=== PATIENT | male | born 1950 | race Caucasian/White ===

== ENCOUNTER → 2017-11-30 10:16 | Outpatient (CLI) | payer MEDICARE, OTHER, SELFPAY ==
[2017-11-30 12:04] LABS: Add Manual Diff / Slide Review NO; Basophils Percent Auto 0.5 % (0-2); Eosinophils Percent Auto 1.5 % (2-4); Hematocrit 42.9 % (41-53); Hemoglobin 14.1 g/dL (13.5-17.5); Mean Corpuscular Hemoglobin 28.6 PG (26-34); Mean Corpuscular Volume 86.7 fL (80-100); Monocytes Percent Auto 7.3 % (3-14); Neutrophils Absolute Auto 4000 /uL (3000-5900); Neutrophils Percent Auto 63.7 % (50-75); Platelet Count 319 X10^3/uL (150-400); Red Blood Cell Count 4.95 X10^6/uL (4.5-5.9); Red Cell Distribution Width 14.2 % (11.6-14.8); White Blood Cell Count 6.3 X10^3/uL (4.5-11.0)
[2017-11-30 12:08] LABS: Albumin 3.7 g/dL (3.5-5.0); BUN Creatinine Ratio 21.1 (6-22); Blood Urea Nitrogen 19 mg/dL (9-20); Carbon Dioxide 31 mmol/L (22-32); Chloride 103 mmol/L (98-107); Estimated Glomerular Filt Rate > 60.0 mL/min (>60); Glucose 85 mg/dL (80-110); HEMOLYSIS < 15 (0-50); Potassium 3.7 mmol/L (3.4-5.1); Sodium 141 mmol/L (137-145)
[2017-11-30 12:39] LABS: Carcinoembryonic Antigen 1.4 ng/mL (0.1-3.0)
== END ==
PROVIDERS: Family Provider Physician Assistant; PCP Physician Assistant
DX: D12.2 Benign neoplasm of ascending colon (principal)
CPT/HCPCS: 36415; 80048; 82040; 82378; 85025

== ENCOUNTER 2018-03-23 21:34 | Emergency (ER) | payer MEDICARE, OTHER, SELFPAY ==
[2018-03-23 21:42] VITALS: BP 148/80; PULSE 91; RESP 20; TEMP 37.8; O2SAT 95; BMI 32.8
--- NOTE | 2018-03-23 23:27 | ED.FEVER ---
HPI - Fever General Chief Complaint: Fever Stated Complaint: fever Time Seen by Provider: 03/23/18 22:19 Source: patient and family Mode of arrival: ambulatory Limitations: no limitations History of Present Illness HPI Narrative: 67-year-old male, nonsmoker with history of prostate cancer presents with fever and shaking chills since yesterday. On March 18 patient had a biopsy his prostate at the [facility] and reported that this went quite well, though he does not have resulted. Yesterday the patient started developing low-grade fever which climbed to a maximal 101.8 F. He had some chills yesterday but none over the course of the day. Otherwise he is largely asymptomatic and denies any runny nose, sore throat, cough or shortness of breath. He denies any abdominal pain nor nausea or vomiting. He has no dysuria, frequency or urgency. He denies any lower extremity pain, swelling or redness. MD complaint: fever Onset (ago): day(s) Maximum Temperature: 101.8 F Temperature Source: oral Associated symptoms: chills Relieving factors: nothing Exacerbating factors: nothing Treatments prior to arrival fever: acetaminophen and ibuprofen Related Data Home Medications Medication Instructions Recorded Confirmed Ciprofloxacin Hydrochloride (Cipro) #0 12/20/09 METRONIDAZOLE (Flagyl) #0 12/20/09 [FISH OIL] Q DAY #0 12/20/09 [GLUCOSAMINE/CHOND] PO Q DAY #0 12/20/09 Previous Rx's Medication Instructions Recorded levofloxacin [Levaquin] 500 mg PO DAILY #7 tab 03/24/18 Allergies Allergy/AdvReac Type Severity Reaction Status Date / Time No Known Drug Allergies Allergy Verified 03/23/18 23:43 Review of Systems Review of Systems All systems reviewed & are unremarkable except as noted in HPI and below Constitutional Reports chills, Reports fever(s), Denies lethargy and Denies weakness Eyes Denies change in vision, Denies eye discharge, Denies irritation and Denies loss of vision ENT Ears, Nose, Mouth, and Throat: Denies change in voice, Denies neck pain and Denies sore throat Cardiovascular Denies chest pain, Denies irregular heart rhythm, Denies lightheadedness, Denies palpitations, Denies dyspnea, Denies dyspnea on exertion and Denies orthopnea Respiratory Denies cough, Denies dyspnea, Denies dyspnea on exertion and Denies wheezing Gastrointestinal Gastrointestinal: Denies abdominal pain, Denies change in bowel habits, Denies diarrhea, Denies nausea and Denies vomiting Genitourinary Denies hematuria, Denies flank pain, Denies urinary incontinence and Denies urinary urgency Musculoskeletal Denies neck pain Integumentary/Breasts Denies pruritus, Denies erythema, Denies rash and Denies wounds Neurologic Denies confusion, Denies loss of vision and Denies weakness Psychiatric Denies anxiety, Denies confusion, Denies depression, Denies homicidal ideation and Denies suicidal ideation Endocrine Denies palpitations Hematologic/Lymphatic Denies easy bruising Allergic/Immunologic Denies wheezing [facility] Medical History Prostate CA (Acute) Surgical History History of total left knee replacement (Acute) Social History Smoking Status: Never smoker Exam Narrative Exam Narrative: GENERAL: 67-year-old male resting comfortably, in no obvious distress HEAD: Atraumatic. Normocephalic. No temporal or scalp tenderness. EYES: Pupils equal round and reactive. Extraocular motions intact. No scleral icterus. No injection or drainage. ENT: Nose without bleeding, purulent drainage or septal hematoma. Throat without erythema, tonsillar hypertrophy or exudate. Uvula midline. Airway patent. NECK: Trachea midline. No JVD or lymphadenopathy. Supple, nontender, no meningeal signs. CARDIOVASCULAR: Regular rate and rhythm without murmurs, gallops, or rubs. RESPIRATORY: Clear to auscultation. Breath sounds equal bilaterally. No wheezes, rales, or rhonchi. GASTROINTESTINAL: Abdomen soft, non-tender, nondistended. No hepato-splenomegaly, or palpable masses. No guarding. EXTREMITIES: No clubbing, cyanosis, or edema. No joint tenderness, effusion, or edema noted. BACK: Nontender without deformity or crepitance. No flank tenderness. NEURO: AOx3. SKIN: No rash or erythema. Initial Vital Signs Initial Vital Signs: Vital Signs Temperature 100.0 F H 03/23/18 21:42 Pulse Rate 91 H 03/23/18 21:42 Respiratory Rate 20 10/28/18 21:42 Blood Pressure 148/80 H 03/23/18 21:42 Pulse Oximetry 95 03/23/18 21:42 Course Orders Ordered: ED Orders 03/23/18 23:15 Urine Microscopic Stat 03/23/18 23:25 Basic Metabolic Panel Stat Complete Blood Count AUTO DIFF Stat Lactate (Lactic Acid) Stat Procalcitonin Stat 03/23/18 23:38 XR chest 1V Stat 03/23/18 23:55 Blood Culture Stat Discontinued Medications Levofloxacin (Levaquin) 500 mg in 100 mls @ 100 mls/hr IV NOW ONE Stop: 03/24/18 00:36 Last Infusion: 03/24/18 01:14 Dose: 0 mls/hr Admin: 03/24/18 00:15 Dose: 100 mls/hr Sodium Chloride (Normal Saline 0.9%) 1,000 mls @ 1,000 mls/hr IV BOLUS ONE Stop: 03/24/18 00:36 Last Infusion: 03/24/18 00:37 Dose: 0 mls/hr Admin: 03/23/18 23:48 Dose: 1,000 mls/hr Ketorolac Tromethamine (Toradol) 15 mg IV NOW ONE Stop: 03/23/18 23:38 Last Admin: 03/23/18 23:46 Dose: 15 mg Reevaluation(s) Reevaluation #1: Patient continues to be asymptomatic and rest comfortably in the department Consultations Consultation #1: Call to Urology at the [facility] to discuss this case. Labs and physical exam are very reassuring as is the set of vital signs. We sure the opinion fluoroquinolone and close follow-up are more appropriate than admission until cleared cultures. The patient and his were on board with this and plan to follow up very closely with her providers. Vital Signs - 8 hr 03/23/18 21:42 03/23/18 23:46 03/24/18 00:00 Temperature 100.0 F H 100.0 F H 100.1 F H Pulse Rate 91 H 88 Respiratory Rate 20 16 Blood Pressure 148/80 H Blood Pressure [Right Arm] 123/70 Pulse Oximetry 95 96 03/24/18 00:30 03/24/18 00:37 03/24/18 01:36 Temperature 101.1 F H Pulse Rate 85 79 Respiratory Rate 14 16 Blood Pressure Blood Pressure [Right Arm] 121/65 115/64 Pulse Oximetry 97 98 MDM - Fever Lab Data Result diagrams: 03/23/18 23:25 03/23/18 23:25 Lab Results 03/23/18 03/23/18 03/23/18 Range/Units 23:15 23:25 23:25 WBC 6.8 (4.5-11.0) X10^3/uL RBC 5.04 (4.5-5.9) X10^6/uL Hgb 14.0 (13.5-17.5) g/dL Hct 42.2 (41-53) % MCV 83.7 (80-100) fL MCH 27.7 (26-34) PG MCHC 33.1 (30-36) % RDW 15.1 H (11.6-14.8) % Plt Count 239 (150-400) X10^3/uL Neut % (Auto) 70.7 (50-75) % Lymph % (Auto) 14.4 L (25-40) % [place] % (Auto) 8.2 (3-14) % Eos % (Auto) 6.0 H (2-4) % Baso % (Auto) 0.7 (0-2) % Neut # (Auto) 4800 (4665-0992) /uL Sodium 136 L (137-145) mmol/L Potassium 3.7 (3.4-5.1) mmol/L Chloride 101 (98-107) mmol/L Carbon Dioxide 26 (22-32) mmol/L BUN 18 (9-20) mg/dL Creatinine 0.90 (0.66-1.25) mg/dL Estimated GFR > 60.0 (>60) mL/min BUN/Creatinine Ratio 20.0 (6-22) Glucose 105 (80-110) mg/dL Lactate (0.7-2.1) mmol/L Calcium 8.5 (8.4-10.2) mg/dL Procalcitonin (<0.5) ng/mL Urine RBC 1-5/hpf (0-5/HPF) Urine WBC 0-1/hpf (0-5/HPF) Urine Bacteria Occasional (0-1) (None) Urine Mucus 3+ H (Negative) Ur Culture Indicated? Cult not indicated Micro UA Comment Not Reportable 10/28/18 10/28/18 Range/Units 23:25 23:25 WBC (4.5-11.0) X10^3/uL RBC (4.5-5.9) X10^6/uL Hgb (13.5-17.5) g/dL Hct (41-53) % MCV (80-100) fL MCH (26-34) PG MCHC (30-36) % RDW (11.6-14.8) % Plt Count (150-400) X10^3/uL Neut % (Auto) (50-75) % Lymph % (Auto) (25-40) % [place] % (Auto) (3-14) % Eos % (Auto) (2-4) % Baso % (Auto) (0-2) % Neut # (Auto) (8041-0749) /uL Sodium (137-145) mmol/L Potassium (3.4-5.1) mmol/L Chloride (98-107) mmol/L Carbon Dioxide (22-32) mmol/L BUN (9-20) mg/dL Creatinine (0.66-1.25) mg/dL Estimated GFR (>60) mL/min BUN/Creatinine Ratio (6-22) Glucose (80-110) mg/dL Lactate 0.7 (0.7-2.1) mmol/L Calcium (8.4-10.2) mg/dL Procalcitonin 0.08 (<0.5) ng/mL Urine RBC (0-5/HPF) Urine WBC (0-5/HPF) Urine Bacteria (None) Urine Mucus (Negative) Ur Culture Indicated? Micro UA Comment Urine Dip Bedside Urine Glucose Negative Bedside Urine Bilirubin - Negative Bedside Urine Ketone - Negative Urine Specific [place] 1.030 Bedside Urine Occult Blood ++ Bedside Urine pH 6.0 Bedside Urine Protein - Negative Bedside Urine Urobilinogen - Negative Bedside Urine Nitrite - Negative Bedside Urine Leukocytes - Negative Esterase Discharge Plan Departure Patient Disposition: Home Clinical Impression: Fever of unknown origin Discharge Date/Time: 03/24/18 02:00 Interventions: ED Discharge Assessment Last Done: 03/24/18 01:45 Instructions: DI for Fever (Symptom) -- Adult Activity Restrictions/Additional Instructions: *You have been diagnosed with [ fever and possible bacteremia ] *What to do: *Take medications as directed: Your prescription has been electronically transmitted to the [facility] [place] in [place] at your request *Follow up with your primary care provider in 2-3 days, call for an appointment. Let them know you were seen in the Emergency Department and that we ask that you be seen in follow up *Return to ER if you should have any new, worsening or concerning symptoms * You have been prescribed Levaquin as an antibiotic. A possible side effect is problems with tendons. Should you develop pain in any of your joints discontinue the antibiotic and follow up with your provider immediately. Prescriptions: New levofloxacin [Levaquin] 500 mg tablet 500 mg PO DAILY Qty: 7 RF: 0 No Action Ciprofloxacin Hydrochloride (Cipro) Qty: 0 RF: 0 METRONIDAZOLE (Flagyl) Qty: 0 RF: 0 [FISH OIL] Q DAY Qty: 0 RF: 0 [GLUCOSAMINE/CHOND] PO Q DAY Qty: 0 RF: 0 Referrals: Honey Shahid PA-C [Primary Care Provider] -
--- NOTE | 2018-03-23 23:38 | DI.RAD.S_ITS ---
PROCEDURE: XR CHEST 1V INDICATIONS: septic eval TECHNIQUE: One view of the chest was acquired. COMPARISON: [facility], , CHEST 1 VIEW, 12/25/2009, 14:59. FINDINGS: Surgical changes and devices: None. Lungs and pleura: No pleural effusions or pneumothorax. Lungs are clear. Mediastinum: Mediastinal contours appear normal. Heart size is normal. Bones and chest wall: No suspicious bony lesions. Overlying soft tissues appear unremarkable. IMPRESSION: Reduced inspiratory volume, no pneumonia seen. Source of sepsis syndrome is not identified. Dictated by: Jose Roberto Choi M.D. on 03/24/2018 at 8:16 Approved by: Jose Roberto Choi M.D. on 03/24/2018 at 8:16
[2018-03-23 23:46] VITALS: TEMP 37.8
[2018-03-23 23:46] LABS: Add Manual Diff / Slide Review NO; Basophils Percent Auto 0.7 % (0-2); Hematocrit 42.2 % (41-53); Lymphocytes Percent Auto 14.4 % (25-40); Mean Corpuscular HGB Conc 33.1 % (30-36); Mean Corpuscular Hemoglobin 27.7 PG (26-34); Mean Corpuscular Volume 83.7 fL (80-100); Monocytes Percent Auto 8.2 % (3-14); Neutrophils Absolute Auto 4800 /uL (3000-5900); Neutrophils Percent Auto 70.7 % (50-75); Platelet Count 239 X10^3/uL (150-400); Red Blood Cell Count 5.04 X10^6/uL (4.5-5.9); Red Cell Distribution Width 15.1 % (11.6-14.8); White Blood Cell Count 6.8 X10^3/uL (4.5-11.0)
[2018-03-23] MEDS: KETOROLAC 60 MG/2 ML VIAL 15 MG IV (23:46)
[2018-03-23] MEDS: SODIUM CHLORIDE 0.9% 1,000 ML 1000 ML IV (23:48)
[2018-03-23 23:50] LABS: Lactate (Lactic Acid) 0.7 mmol/L (0.7-2.1)
[2018-03-23 23:56] LABS: Blood Urea Nitrogen 18 mg/dL (9-20); Calcium 8.5 mg/dL (8.4-10.2); Carbon Dioxide 26 mmol/L (22-32); Chloride 101 mmol/L (98-107); Estimated Glomerular Filt Rate > 60.0 mL/min (>60); Glucose 105 mg/dL (80-110); HEMOLYSIS < 15 (0-50); Potassium 3.7 mmol/L (3.4-5.1); Sodium 136 mmol/L (137-145)
[2018-03-24] VITALS: BP 123/70; PULSE 88; RESP 16; TEMP 37.8; O2SAT 96
[2018-03-24 00:02] LABS: Bacteria Urine Occasional (0-1); Culture Indicated Urine Cult Not Indicated; Mucus Urine 3+ (Negative); RBC Urine 1-5/HPF (0-5/HPF); WBC Urine 0-1/HPF (0-5/HPF)
[2018-03-24 00:10] LABS: Procalcitonin 0.08 ng/mL (<0.5)
[2018-03-24] MEDS: levoFLOXacin 500 MG/100 ML PIGGYBACK 100 MG IV (00:15)
[2018-03-24 00:30] VITALS: BP 121/65; PULSE 85; RESP 14; O2SAT 97
[2018-03-24 00:37] VITALS: TEMP 38.4
[2018-03-24 01:36] VITALS: BP 115/64; PULSE 79; RESP 16; O2SAT 98
--- NOTE | 2018-03-24 04:47 | ED_ITS ---
HPI - Fever General Chief Complaint: Fever Stated Complaint: fever Time Seen by Provider: 03/23/18 22:19 Source: patient and family Mode of arrival: ambulatory Limitations: no limitations History of Present Illness HPI Narrative: 67-year-old male, nonsmoker with history of prostate cancer presents with fever and shaking chills since yesterday. On March 18 patient had a biopsy his prostate at the [facility] and reported that this went quite well, though he does not have resulted. Yesterday the patient started developing low-grade fever which climbed to a maximal 101.8 F. He had some chills yesterday but none over the course of the day. Otherwise he is largely asymptomatic and denies any runny nose, sore throat, cough or shortness of breath. He denies any abdominal pain nor nausea or vomiting. He has no dysuria, frequency or urgency. He denies any lower extremity pain, swelling or redness. MD complaint: fever Onset (ago): day(s) Maximum Temperature: 101.8 F Temperature Source: oral Associated symptoms: chills Relieving factors: nothing Exacerbating factors: nothing Treatments prior to arrival fever: acetaminophen and ibuprofen Related Data Home Medications Medication Instructions Recorded Confirmed Ciprofloxacin Hydrochloride (Cipro) #0 12/20/09 METRONIDAZOLE (Flagyl) #0 12/20/09 [FISH OIL] Q DAY #0 12/20/09 [GLUCOSAMINE/CHOND] PO Q DAY #0 12/20/09 Previous Rx's Medication Instructions Recorded levofloxacin [Levaquin] 500 mg PO DAILY #7 tab 03/24/18 Allergies Allergy/AdvReac Type Severity Reaction Status Date / Time No Known Drug Allergies Allergy Verified 03/23/18 23:43 Review of Systems Review of Systems All systems reviewed & are unremarkable except as noted in HPI and below Constitutional Reports chills, Reports fever(s), Denies lethargy and Denies weakness Eyes Denies change in vision, Denies eye discharge, Denies irritation and Denies loss of vision ENT Ears, Nose, Mouth, and Throat: Denies change in voice, Denies neck pain and Denies sore throat Cardiovascular Denies chest pain, Denies irregular heart rhythm, Denies lightheadedness, Denies palpitations, Denies dyspnea, Denies dyspnea on exertion and Denies orthopnea Respiratory Denies cough, Denies dyspnea, Denies dyspnea on exertion and Denies wheezing Gastrointestinal Gastrointestinal: Denies abdominal pain, Denies change in bowel habits, Denies diarrhea, Denies nausea and Denies vomiting Genitourinary Denies hematuria, Denies flank pain, Denies urinary incontinence and Denies urinary urgency Musculoskeletal Denies neck pain Integumentary/Breasts Denies pruritus, Denies erythema, Denies rash and Denies wounds Neurologic Denies confusion, Denies loss of vision and Denies weakness Psychiatric Denies anxiety, Denies confusion, Denies depression, Denies homicidal ideation and Denies suicidal ideation Endocrine Denies palpitations Hematologic/Lymphatic Denies easy bruising Allergic/Immunologic Denies wheezing [facility] Medical History Prostate CA (Acute) Surgical History History of total left knee replacement (Acute) Social History Smoking Status: Never smoker Exam Narrative Exam Narrative: GENERAL: 67-year-old male resting comfortably, in no obvious distress HEAD: Atraumatic. Normocephalic. No temporal or scalp tenderness. EYES: Pupils equal round and reactive. Extraocular motions intact. No scleral icterus. No injection or drainage. ENT: Nose without bleeding, purulent drainage or septal hematoma. Throat without erythema, tonsillar hypertrophy or exudate. Uvula midline. Airway patent. NECK: Trachea midline. No JVD or lymphadenopathy. Supple, nontender, no meningeal signs. CARDIOVASCULAR: Regular rate and rhythm without murmurs, gallops, or rubs. RESPIRATORY: Clear to auscultation. Breath sounds equal bilaterally. No wheezes , rales, or rhonchi. GASTROINTESTINAL: Abdomen soft, non-tender, nondistended. No hepato-splenomegaly , or palpable masses. No guarding. EXTREMITIES: No clubbing, cyanosis, or edema. No joint tenderness, effusion, or edema noted. BACK: Nontender without deformity or crepitance. No flank tenderness. NEURO: AOx3. SKIN: No rash or erythema. Initial Vital Signs Initial Vital Signs: Vital Signs Temperature 100.0 F H 03/23/18 21:42 Pulse Rate 91 H 03/23/18 21:42 Respiratory Rate 20 10/28/18 21:42 Blood Pressure 148/80 H 03/23/18 21:42 Pulse Oximetry 95 03/23/18 21:42 Course Orders Ordered: ED Orders 03/23/18 23:15 Urine Microscopic Stat 03/23/18 23:25 Basic Metabolic Panel Stat Complete Blood Count AUTO DIFF Stat Lactate (Lactic Acid) Stat Procalcitonin Stat 03/23/18 23:38 XR chest 1V Stat 03/23/18 23:55 Blood Culture Stat Discontinued Medications Levofloxacin (Levaquin) 500 mg in 100 mls @ 100 mls/hr IV NOW ONE Stop: 03/24/18 00:36 Last Infusion: 03/24/18 01:14 Dose: 0 mls/hr Admin: 03/24/18 00:15 Dose: 100 mls/hr Sodium Chloride (Normal Saline 0.9%) 1,000 mls @ 1,000 mls/hr IV BOLUS ONE Stop: 03/24/18 00:36 Last Infusion: 03/24/18 00:37 Dose: 0 mls/hr Admin: 03/23/18 23:48 Dose: 1,000 mls/hr Ketorolac Tromethamine (Toradol) 15 mg IV NOW ONE Stop: 03/23/18 23:38 Last Admin: 03/23/18 23:46 Dose: 15 mg Reevaluation(s) Reevaluation #1: Patient continues to be asymptomatic and rest comfortably in the department Consultations Consultation #1: Call to Urology at the [facility] to discuss this case. Labs and physical exam are very reassuring as is the set of vital signs. We sure the opinion fluoroquinolone and close follow-up are more appropriate than admission until cleared cultures. The patient and his were on board with this and plan to follow up very closely with her providers. Vital Signs - 8 hr 03/23/18 21:42 03/23/18 23:46 03/24/18 00:00 Temperature 100.0 F H 100.0 F H 100.1 F H Pulse Rate 91 H 88 Respiratory Rate 20 16 Blood Pressure 148/80 H Blood Pressure [Right Arm] 123/70 Pulse Oximetry 95 96 03/24/18 00:30 03/24/18 00:37 03/24/18 01:36 Temperature 101.1 F H Pulse Rate 85 79 Respiratory Rate 14 16 Blood Pressure Blood Pressure [Right Arm] 121/65 115/64 Pulse Oximetry 97 98 MDM - Fever Lab Data Result diagrams: 03/23/18 23:25 03/23/18 23:25 Lab Results 03/23/18 03/23/18 03/23/18 Range/Units 23:15 23:25 23:25 WBC 6.8 (4.5-11.0) X10^3/uL RBC 5.04 (4.5-5.9) X10^6/uL Hgb 14.0 (13.5-17.5) g/dL Hct 42.2 (41-53) % MCV 83.7 (80-100) fL MCH 27.7 (26-34) PG MCHC 33.1 (30-36) % RDW 15.1 H (11.6-14.8) % Plt Count 239 (150-400) X10^3/uL Neut % (Auto) 70.7 (50-75) % Lymph % (Auto) 14.4 L (25-40) % [place] % (Auto) 8.2 (3-14) % Eos % (Auto) 6.0 H (2-4) % Baso % (Auto) 0.7 (0-2) % Neut # (Auto) 4800 (9035-6055) /uL Sodium 136 L (137-145) mmol/L Potassium 3.7 (3.4-5.1) mmol/L Chloride 101 (98-107) mmol/L Carbon Dioxide 26 (22-32) mmol/L BUN 18 (9-20) mg/dL Creatinine 0.90 (0.66-1.25) mg/dL Estimated GFR > 60.0 (>60) mL/min BUN/Creatinine Ratio 20.0 (6-22) Glucose 105 (80-110) mg/dL Lactate (0.7-2.1) mmol/L Calcium 8.5 (8.4-10.2) mg/dL Procalcitonin (<0.5) ng/mL Urine RBC 1-5/hpf (0-5/HPF) Urine WBC 0-1/hpf (0-5/HPF) Urine Bacteria Occasional (0-1) (None) Urine Mucus 3+ H (Negative) Ur Culture Indicated? Cult not indicated Micro UA Comment Not Reportable 10/28/18 10/28/18 Range/Units 23:25 23:25 WBC (4.5-11.0) X10^3/uL RBC (4.5-5.9) X10^6/uL Hgb (13.5-17.5) g/dL Hct (41-53) % MCV (80-100) fL MCH (26-34) PG MCHC (30-36) % RDW (11.6-14.8) % Plt Count (150-400) X10^3/uL Neut % (Auto) (50-75) % Lymph % (Auto) (25-40) % [place] % (Auto) (3-14) % Eos % (Auto) (2-4) % Baso % (Auto) (0-2) % Neut # (Auto) (7682-8881) /uL Sodium (137-145) mmol/L Potassium (3.4-5.1) mmol/L Chloride (98-107) mmol/L Carbon Dioxide (22-32) mmol/L BUN (9-20) mg/dL Creatinine (0.66-1.25) mg/dL Estimated GFR (>60) mL/min BUN/Creatinine Ratio (6-22) Glucose (80-110) mg/dL Lactate 0.7 (0.7-2.1) mmol/L Calcium (8.4-10.2) mg/dL Procalcitonin 0.08 (<0.5) ng/mL Urine RBC (0-5/HPF) Urine WBC (0-5/HPF) Urine Bacteria (None) Urine Mucus (Negative) Ur Culture Indicated? Micro UA Comment Urine Dip Bedside Urine Glucose Negative Bedside Urine Bilirubin - Negative Bedside Urine Ketone - Negative Urine Specific [place] 1.030 Bedside Urine Occult Blood ++ Bedside Urine pH 6.0 Bedside Urine Protein - Negative Bedside Urine Urobilinogen - Negative Bedside Urine Nitrite - Negative Bedside Urine Leukocytes - Negative Esterase Discharge Plan Departure Patient Disposition: Home Clinical Impression: Fever of unknown origin Discharge Date/Time: 03/24/18 02:00 Interventions: ED Discharge Assessment Last Done: 03/24/18 01:45 Instructions: DI for Fever (Symptom) -- Adult Activity Restrictions/Additional Instructions: *You have been diagnosed with [ fever and possible bacteremia ] *What to do: *Take medications as directed: Your prescription has been electronically transmitted to the [facility] in [place] at your request *Follow up with your primary care provider in 2-3 days, call for an appointment. Let them know you were seen in the Emergency Department and that we ask that you be seen in follow up *Return to ER if you should have any new, worsening or concerning symptoms * You have been prescribed Levaquin as an antibiotic. A possible side effect is problems with tendons. Should you develop pain in any of your joints discontinue the antibiotic and follow up with your provider immediately. Prescriptions: New levofloxacin [Levaquin] 500 mg tablet 500 mg PO DAILY Qty: 7 RF: 0 No Action Ciprofloxacin Hydrochloride (Cipro) Qty: 0 RF: 0 METRONIDAZOLE (Flagyl) Qty: 0 RF: 0 [FISH OIL] Q DAY Qty: 0 RF: 0 [GLUCOSAMINE/CHOND] PO Q DAY Qty: 0 RF: 0 Referrals: Honey Shahid PA-C [Primary Care Provider] -
== END 2018-03-24 02:00 | disposition home or self-care (01) ==
PROVIDERS: Emergency Provider Emergency Medicine; Family Provider Physician Assistant; PCP Physician Assistant
DX: R50.9 Fever, unspecified (principal)
CPT/HCPCS: 36591; 71045; 80048; 81003; 81015; 83605; 84145; 85025; 87040; 96361; 96365; 96375; 99283; 99284; J1885; J1956

== ENCOUNTER 2018-03-25 10:35 | Emergency (ER) | payer MEDICARE, OTHER, SELFPAY ==
[2018-03-25 10:40] VITALS: BP 113/68; PULSE 96; RESP 14; TEMP 37.8; O2SAT 97; BMI 32.8
--- NOTE | 2018-03-25 11:53 | PC.NURSE ---
Patient had biopsy of prostate on five days later began having chills, fever and malaise. Patient seen here on Saturday and started on abx. Patient reports small rash noticed saturday and increase in rash lower legs bilaterally, arms, and trunk.
[2018-03-25 12:15] LABS: Influenza A and B by PCR Rapid Negative (Negative)
--- NOTE | 2018-03-25 12:38 | ED.FEVER ---
HPI - Fever <ARNOL AllisonBC - Last Filed: 03/25/18 23:06> General Chief Complaint: Fever Stated Complaint: rash, fever, feels flu like Time Seen by Provider: 03/25/18 12:30 Source: patient and family Mode of arrival: ambulatory History of Present Illness HPI Narrative: Patient is a 67-year-old male who presents approximately 1 week after prostate biopsy done at [facility]. He was seen at this facility 2 days ago for fever after his biopsy and was placed on Levaquin. Patient presents with continued fever, shakes and chills. Patient denies any dysuria urgency or frequency. He denies any cough congestion shortness of breath abdominal pain, nausea vomiting or diarrhea. He does complain of a rash over his lower legs, trunk, and arms. He states that this was noticed on Saturday prior to when he started the Levaquin, but started after he took the Cipro around his surgery. He has not followed up with his surgeon since the biopsy. He denies any sore throat, ear chelo, etc and Is largely asymptomatic other than the rash and the fever. Related Data Home Medications Medication Instructions Recorded Confirmed [FISH OIL] Q DAY #0 12/20/09 [GLUCOSAMINE/CHOND] PO Q DAY #0 12/20/09 atorvastatin 1 tab PO DAILY 03/25/18 03/25/18 lisinopril-hydrochlorothiazide 1 tab PO DAILY 03/25/18 03/25/18 Previous Rx's Medication Instructions Recorded levofloxacin [Levaquin] 500 mg PO DAILY #7 tab 03/24/18 sulfamethoxazole-trimethoprim 1 tab PO BID #20 tab 03/25/18 [Bactrim DS] Allergies Allergy/AdvReac Type Severity Reaction Status Date / Time No Known Drug Allergies Allergy Verified 03/25/18 10:43 Review of Systems <DAX Allison - Last Filed: 03/25/18 23:06> Review of Systems GENERAL: see HPI HEENT: Denies sinus pain, ear pain, sore throat, difficulty swallowing, dizziness. RESPIRATORY: Denies dyspnea, cough, wheezing, hemoptysis, sputum. CARDIOVASCULAR: Denies chest pain, palpitations, orthopnea, edema, GASTROINTESTINAL: Denies nausea, vomiting, abdominal pain, diarrhea, constipation, melena. : Denies dysuria, frequency, incontinence, hematuria, urinary retention. MUSCULOSKELETAL: denies weakness, joint pain, or bony pain SKIN: see HPI NEUROLOGIC: Denies weakness, headache, numbness, change in speech, confusion, seizures, incoordination. PSYCHIATRIC: No concerning psychosocial issues. 12 point review of systems is negative except for those stated above Exam <Qiana JackmanCYNDY hawthorneP-BC - Last Filed: 03/25/18 23:06> Narrative Exam Narrative: GENERAL: This is a well-nourished, well-developed patient, in no acute distress HEAD: Atraumatic. Normocephalic. No temporal or scalp tenderness. EYES: Pupils equal round and reactive. Extraocular motions intact. No scleral icterus. No injection or drainage. ENT: Nose without bleeding, purulent drainage or septal hematoma. Throat without erythema, tonsillar hypertrophy or exudate. Uvula midline. Airway patent. NECK: Trachea midline. No JVD or lymphadenopathy. Supple, nontender, no meningeal signs. CARDIOVASCULAR: Regular rate and rhythm without murmurs, gallops, or rubs. RESPIRATORY: Clear to auscultation. Breath sounds equal bilaterally. No wheezes, rales, or rhonchi. no cough on exam. No accessory muscle use. GASTROINTESTINAL: Abdomen soft, non-tender, nondistended. No hepato-splenomegaly, or palpable masses. No guarding. EXTREMITIES: No clubbing, cyanosis, or edema. No joint tenderness, effusion, or edema noted. BACK: Nontender without deformity or crepitance. No flank tenderness. NEURO: AOx3. SKIN: Erythematous macular rash with bilateral legs, trunk and back. Blanches. No crusting, vesicles, exudate. Initial Vital Signs Initial Vital Signs: Vital Signs Temperature 100.1 F H 03/25/18 10:40 Pulse Rate 96 H 03/25/18 10:40 Respiratory Rate 14 03/25/18 10:40 Blood Pressure 113/68 03/25/18 10:40 Pulse Oximetry 97 03/25/18 10:40 <Mario Alberto Marin DO - Last Filed: 03/28/18 18:18> Initial Vital Signs Initial Vital Signs: Vital Signs Temperature 100.1 F H 03/25/18 10:40 Pulse Rate 96 H 03/25/18 10:40 Respiratory Rate 14 03/25/18 10:40 Blood Pressure 113/68 03/25/18 10:40 Pulse Oximetry 97 03/25/18 10:40 Course <CYNDY AllisonP-BC - Last Filed: 03/25/18 23:06> Course Narrative: I met with the patient and his several times throughout his stay in the emergency department. I spoke with Dr. Bell, his urologist from [facility] who recommended stopping the Levaquin and starting Bactrim. He also recommended IM ceftriaxone. He states he plans on following up with the patient tomorrow or the next day. Patient remained hemodynamically stable in the emergency department. Orders Ordered: Discontinued Medications Acetaminophen (Tylenol) 975 mg PO NOW ONE Stop: 03/25/18 15:58 Last Admin: 03/25/18 16:33 Dose: 975 mg Ceftriaxone Sodium (Rocephin) 1,000 mg IM NOW ONE Stop: 03/25/18 16:15 Last Admin: 03/25/18 16:34 Dose: 1,000 mg Lidocaine HCl (Xylocaine 1%) 4.2 ml INJ NOW ONE Stop: 03/25/18 16:15 Trimethoprim/Sulfamethoxazole (Bactrim Ds) 1 tab PO NOW ONE Stop: 03/25/18 16:15 Last Admin: 03/25/18 16:38 Dose: 1 tab Vital Signs - 8 hr 03/25/18 15:08 03/25/18 16:41 Temperature 100.4 F H Pulse Rate 87 87 Respiratory Rate 16 16 Blood Pressure [Right Arm] 129/60 143/58 H Pulse Oximetry 94 <Mario Alberto Marin DO - Last Filed: 03/28/18 18:18> Orders Ordered: Discontinued Medications Acetaminophen (Tylenol) 975 mg PO NOW ONE Stop: 03/25/18 15:58 Last Admin: 03/25/18 16:33 Dose: 975 mg Ceftriaxone Sodium (Rocephin) 1,000 mg IM NOW ONE Stop: 03/25/18 16:15 Last Admin: 03/25/18 16:34 Dose: 1,000 mg Lidocaine HCl (Xylocaine 1%) 4.2 ml INJ NOW ONE Stop: 03/25/18 16:15 Trimethoprim/Sulfamethoxazole (Bactrim Ds) 1 tab PO NOW ONE Stop: 03/25/18 16:15 Last Admin: 03/25/18 16:38 Dose: 1 tab Vital Signs - 8 hr 03/25/18 15:08 03/25/18 16:41 Temperature 100.4 F H Pulse Rate 87 87 Respiratory Rate 16 16 Blood Pressure [Right Arm] 129/60 143/58 H Pulse Oximetry 94 MDM - Fever <Qiana Sarah, PHYSICAL SECURITY SPECIALIST-BC - Last Filed: 03/25/18 23:06> Lab Data Result diagrams: 03/25/18 13:18 03/25/18 13:45 Lab Results 03/25/18 03/25/18 03/25/18 Range/Units 13:05 13:18 13:18 WBC 7.2 (4.5-11.0) X10^3/uL RBC 5.09 (4.5-5.9) X10^6/uL Hgb 14.1 (13.5-17.5) g/dL Hct 42.3 (41-53) % MCV 83.1 (80-100) fL MCH 27.8 (26-34) PG MCHC 33.5 (30-36) % RDW 15.3 H (11.6-14.8) % Plt Count 211 (150-400) X10^3/uL Neut % (Auto) 77.2 H (50-75) % Lymph % (Auto) 11.2 L (25-40) % Nash % (Auto) 6.6 (3-14) % Eos % (Auto) 4.4 H (2-4) % Baso % (Auto) 0.6 (0-2) % Neut # (Auto) 5500 (0595-5256) /uL Sodium (137-145) mmol/L Potassium (3.4-5.1) mmol/L Chloride (98-107) mmol/L Carbon Dioxide (22-32) mmol/L BUN (9-20) mg/dL Creatinine (0.66-1.25) mg/dL Estimated GFR (>60) mL/min BUN/Creatinine Ratio (6-22) Glucose (80-110) mg/dL Lactate 0.9 (0.7-2.1) mmol/L Calcium (8.4-10.2) mg/dL Total Bilirubin (0.2-1.3) mg/dL AST (17-59) IU/L ALT (21-72) IU/L Alkaline Phosphatase (38-126) U/L Total Protein (6.3-8.2) g/dL Albumin (3.5-5.0) g/dL Globulin (1.7-4.1) g/dL Albumin/Globulin Ratio (1.0-2.8) Urine Color Yellow Urine Appearance Clear Urine pH 5.0 (4.5-8.0) Ur Specific [place] 1.010 (1.000-1.035) Urine Protein Negative (Negative) Urine Glucose (UA) Negative (Normal) g/dL Urine Ketones Negative (NEGATIVE) Urine Occult Blood 2+ H (Negative) Urine Nitrate Negative (Negative) Urine Bilirubin Negative (NEGATIVE) Urine Urobilinogen 0.2 (0.2) E.U./dL Ur Leukocyte Esterase Negative (NEGATIVE) Urine RBC 0-1/hpf (0-5/HPF) Urine WBC 0-1/hpf (0-5/HPF) Ur Squamous Epith Cells None seen Urine Bacteria Occasional (0-1) (None) Ur Culture Indicated? Cult not indicated Micro UA Comment Not Reportable Influenza A & B (PCR) (Negative) 03/25/18 03/25/18 Range/Units 13:45 Unknown WBC (4.5-11.0) X10^3/uL RBC (4.5-5.9) X10^6/uL Hgb (13.5-17.5) g/dL Hct (41-53) % MCV (80-100) fL MCH (26-34) PG MCHC (30-36) % RDW (11.6-14.8) % Plt Count (150-400) X10^3/uL Neut % (Auto) (50-75) % Lymph % (Auto) (25-40) % Nash % (Auto) (3-14) % Eos % (Auto) (2-4) % Baso % (Auto) (0-2) % Neut # (Auto) (0853-8063) /uL Sodium 138 (137-145) mmol/L Potassium 3.6 (3.4-5.1) mmol/L Chloride 98 (98-107) mmol/L Carbon Dioxide 28 (22-32) mmol/L BUN 16 (9-20) mg/dL Creatinine 1.00 (0.66-1.25) mg/dL Estimated GFR > 60.0 (>60) mL/min BUN/Creatinine Ratio 16.0 (6-22) Glucose 92 (80-110) mg/dL Lactate (0.7-2.1) mmol/L Calcium 8.6 (8.4-10.2) mg/dL Total Bilirubin 0.6 (0.2-1.3) mg/dL AST 22 (17-59) IU/L ALT 25 (21-72) IU/L Alkaline Phosphatase 49 (38-126) U/L Total Protein 7.0 (6.3-8.2) g/dL Albumin 3.8 (3.5-5.0) g/dL Globulin 3.2 (1.7-4.1) g/dL Albumin/Globulin Ratio 1.2 (1.0-2.8) Urine Color Urine Appearance Urine pH (4.5-8.0) Ur Specific [place] (1.000-1.035) Urine Protein (Negative) Urine Glucose (UA) (Normal) g/dL Urine Ketones (NEGATIVE) Urine Occult Blood (Negative) Urine Nitrate (Negative) Urine Bilirubin (NEGATIVE) Urine Urobilinogen (0.2) E.U./dL Ur Leukocyte Esterase (NEGATIVE) Urine RBC (0-5/HPF) Urine WBC (0-5/HPF) Ur Squamous Epith Cells Urine Bacteria (None) Ur Culture Indicated? Micro UA Comment Influenza A & B (PCR) Negative (Negative) MDM Narrative Medical decision making narrative: patient is a 67-year-old male who had a prostate biopsy done last week who presents with fevers as well as a rash. The patient was hemodynamically stable throughout his stay in the emergency department.Given that the rash started after his ciprofloxacin, worsened after his level floxacillin, I highly suspect that this is a drug-related rash. I spoke with his specialist Dr. Vishnu Bell at the [facility] urology regarding a plan and followed his suggested plan of stopping the Levaquin, starting Bactrim and dose of IM Ceftriaxone. I discussed at length return precautions with the patient and his , stated that the urologist plans and speaking with them tomorrow or the next day. Patient had no questions or concerns upon discharge. <Mario Alberto Marin DO - Last Filed: 03/28/18 18:18> Lab Data Lab Results 10/30/18 10/30/18 10/30/18 Range/Units 13:05 13:18 13:18 WBC 7.2 (4.5-11.0) X10^3/uL RBC 5.09 (4.5-5.9) X10^6/uL Hgb 14.1 (13.5-17.5) g/dL Hct 42.3 (41-53) % MCV 83.1 (80-100) fL MCH 27.8 (26-34) PG MCHC 33.5 (30-36) % RDW 15.3 H (11.6-14.8) % Plt Count 211 (150-400) X10^3/uL Neut % (Auto) 77.2 H (50-75) % Lymph % (Auto) 11.2 L (25-40) % Nash % (Auto) 6.6 (3-14) % Eos % (Auto) 4.4 H (2-4) % Baso % (Auto) 0.6 (0-2) % Neut # (Auto) 5500 (1994-2726) /uL Sodium (137-145) mmol/L Potassium (3.4-5.1) mmol/L Chloride (98-107) mmol/L Carbon Dioxide (22-32) mmol/L BUN (9-20) mg/dL Creatinine (0.66-1.25) mg/dL Estimated GFR (>60) mL/min BUN/Creatinine Ratio (6-22) Glucose (80-110) mg/dL Lactate 0.9 (0.7-2.1) mmol/L Calcium (8.4-10.2) mg/dL Total Bilirubin (0.2-1.3) mg/dL AST (17-59) IU/L ALT (21-72) IU/L Alkaline Phosphatase (38-126) U/L Total Protein (6.3-8.2) g/dL Albumin (3.5-5.0) g/dL Globulin (1.7-4.1) g/dL Albumin/Globulin Ratio (1.0-2.8) Urine Color Yellow Urine Appearance Clear Urine pH 5.0 (4.5-8.0) Ur Specific [place] 1.010 (1.000-1.035) Urine Protein Negative (Negative) Urine Glucose (UA) Negative (Normal) g/dL Urine Ketones Negative (NEGATIVE) Urine Occult Blood 2+ H (Negative) Urine Nitrate Negative (Negative) Urine Bilirubin Negative (NEGATIVE) Urine Urobilinogen 0.2 (0.2) E.U./dL Ur Leukocyte Esterase Negative (NEGATIVE) Urine RBC 0-1/hpf (0-5/HPF) Urine WBC 0-1/hpf (0-5/HPF) Ur Squamous Epith Cells None seen Urine Bacteria Occasional (0-1) (None) Ur Culture Indicated? Cult not indicated Micro UA Comment Not Reportable Influenza A & B (PCR) (Negative) 03/25/18 03/25/18 Range/Units 13:45 Unknown WBC (4.5-11.0) X10^3/uL RBC (4.5-5.9) X10^6/uL Hgb (13.5-17.5) g/dL Hct (41-53) % MCV (80-100) fL MCH (26-34) PG MCHC (30-36) % RDW (11.6-14.8) % Plt Count (150-400) X10^3/uL Neut % (Auto) (50-75) % Lymph % (Auto) (25-40) % Nash % (Auto) (3-14) % Eos % (Auto) (2-4) % Baso % (Auto) (0-2) % Neut # (Auto) (6965-8146) /uL Sodium 138 (137-145) mmol/L Potassium 3.6 (3.4-5.1) mmol/L Chloride 98 (98-107) mmol/L Carbon Dioxide 28 (22-32) mmol/L BUN 16 (9-20) mg/dL Creatinine 1.00 (0.66-1.25) mg/dL Estimated GFR > 60.0 (>60) mL/min BUN/Creatinine Ratio 16.0 (6-22) Glucose 92 (80-110) mg/dL Lactate (0.7-2.1) mmol/L Calcium 8.6 (8.4-10.2) mg/dL Total Bilirubin 0.6 (0.2-1.3) mg/dL AST 22 (17-59) IU/L ALT 25 (21-72) IU/L Alkaline Phosphatase 49 (38-126) U/L Total Protein 7.0 (6.3-8.2) g/dL Albumin 3.8 (3.5-5.0) g/dL Globulin 3.2 (1.7-4.1) g/dL Albumin/Globulin Ratio 1.2 (1.0-2.8) Urine Color Urine Appearance Urine pH (4.5-8.0) Ur Specific [place] (1.000-1.035) Urine Protein (Negative) Urine Glucose (UA) (Normal) g/dL Urine Ketones (NEGATIVE) Urine Occult Blood (Negative) Urine Nitrate (Negative) Urine Bilirubin (NEGATIVE) Urine Urobilinogen (0.2) E.U./dL Ur Leukocyte Esterase (NEGATIVE) Urine RBC (0-5/HPF) Urine WBC (0-5/HPF) Ur Squamous Epith Cells Urine Bacteria (None) Ur Culture Indicated? Micro UA Comment Influenza A & B (PCR) Negative (Negative) Discharge Plan Departure Patient Disposition: Home Clinical Impression: Fever of unknown origin Discharge Date/Time: 03/25/18 17:23 Interventions: ED Discharge Assessment Last Done: 03/25/18 17:22 Instructions: DI for Fever (Symptom) -- Adult Activity Restrictions/Additional Instructions: I spoke with your urologist today. He suggest switching your antibiotics so please stop taking Levaquin and start taking Bactrim. We also gave you an antibiotic injection in the emergency department. Please continue Tylenol and/or ibuprofen as needed for fever and comfort. I suspect the rash will improve after he stopped taking the Levaquin. Please follow-up with her primary care provider if needed. You should also hear from your urologist tomorrow or the next day. Prescriptions: New sulfamethoxazole-trimethoprim [Bactrim DS] 800-160 mg tablet 1 tab PO BID Qty: 20 RF: 0 No Action [FISH OIL] Q DAY Qty: 0 RF: 0 [GLUCOSAMINE/CHOND] PO Q DAY Qty: 0 RF: 0 atorvastatin 10 mg tablet 1 tab PO DAILY RF: 0 lisinopril-hydrochlorothiazide 20-12.5 mg tablet 1 tab PO DAILY RF: 0 levofloxacin [Levaquin] 500 mg tablet 500 mg PO DAILY Qty: 7 RF: 0 Referrals: Honey Shahid PA-C [Primary Care Provider] - <Mario Alberto Marin DO - Last Filed: 03/28/18 18:18> Cosign ED Attending Cosignature Attestation: I was available for consultation during this patient's emergency department encounter
--- NOTE | 2018-03-25 12:41 | ED_ITS ---
HPI - Fever <ARNOL AllisonBC - Last Filed: 03/25/18 23:06> General Chief Complaint: Fever Stated Complaint: rash, fever, feels flu like Time Seen by Provider: 03/25/18 12:30 Source: patient and family Mode of arrival: ambulatory History of Present Illness HPI Narrative: Patient is a 67-year-old male who presents approximately 1 week after prostate biopsy done at [facility]. He was seen at this facility 2 days ago for fever after his biopsy and was placed on Levaquin. Patient presents with continued fever, shakes and chills. Patient denies any dysuria urgency or frequency. He denies any cough congestion shortness of breath abdominal pain, nausea vomiting or diarrhea. He does complain of a rash over his lower legs, trunk, and arms. He states that this was noticed on Saturday prior to when he started the Levaquin, but started after he took the Cipro around his surgery. He has not followed up with his surgeon since the biopsy. He denies any sore throat, ear chelo, etc and Is largely asymptomatic other than the rash and the fever. Related Data Home Medications Medication Instructions Recorded Confirmed [FISH OIL] Q DAY #0 12/20/09 [GLUCOSAMINE/CHOND] PO Q DAY #0 12/20/09 atorvastatin 1 tab PO DAILY 03/25/18 03/25/18 lisinopril-hydrochlorothiazide 1 tab PO DAILY 03/25/18 03/25/18 Previous Rx's Medication Instructions Recorded levofloxacin [Levaquin] 500 mg PO DAILY #7 tab 03/24/18 sulfamethoxazole-trimethoprim 1 tab PO BID #20 tab 03/25/18 [Bactrim DS] Allergies Allergy/AdvReac Type Severity Reaction Status Date / Time No Known Drug Allergies Allergy Verified 03/25/18 10:43 Review of Systems <DAX Allison - Last Filed: 03/25/18 23:06> Review of Systems GENERAL: see HPI HEENT: Denies sinus pain, ear pain, sore throat, difficulty swallowing, dizziness. RESPIRATORY: Denies dyspnea, cough, wheezing, hemoptysis, sputum. CARDIOVASCULAR: Denies chest pain, palpitations, orthopnea, edema, GASTROINTESTINAL: Denies nausea, vomiting, abdominal pain, diarrhea, constipation, melena. : Denies dysuria, frequency, incontinence, hematuria, urinary retention. MUSCULOSKELETAL: denies weakness, joint pain, or bony pain SKIN: see HPI NEUROLOGIC: Denies weakness, headache, numbness, change in speech, confusion, seizures, incoordination. PSYCHIATRIC: No concerning psychosocial issues. 12 point review of systems is negative except for those stated above Exam <Qiana JackmanCYNDY hawthorneP-BC - Last Filed: 03/25/18 23:06> Narrative Exam Narrative: GENERAL: This is a well-nourished, well-developed patient, in no acute distress HEAD: Atraumatic. Normocephalic. No temporal or scalp tenderness. EYES: Pupils equal round and reactive. Extraocular motions intact. No scleral icterus. No injection or drainage. ENT: Nose without bleeding, purulent drainage or septal hematoma. Throat without erythema, tonsillar hypertrophy or exudate. Uvula midline. Airway patent. NECK: Trachea midline. No JVD or lymphadenopathy. Supple, nontender, no meningeal signs. CARDIOVASCULAR: Regular rate and rhythm without murmurs, gallops, or rubs. RESPIRATORY: Clear to auscultation. Breath sounds equal bilaterally. No wheezes , rales, or rhonchi. no cough on exam. No accessory muscle use. GASTROINTESTINAL: Abdomen soft, non-tender, nondistended. No hepato-splenomegaly , or palpable masses. No guarding. EXTREMITIES: No clubbing, cyanosis, or edema. No joint tenderness, effusion, or edema noted. BACK: Nontender without deformity or crepitance. No flank tenderness. NEURO: AOx3. SKIN: Erythematous macular rash with bilateral legs, trunk and back. Blanches. No crusting, vesicles, exudate. Initial Vital Signs Initial Vital Signs: Vital Signs Temperature 100.1 F H 03/25/18 10:40 Pulse Rate 96 H 03/25/18 10:40 Respiratory Rate 14 03/25/18 10:40 Blood Pressure 113/68 03/25/18 10:40 Pulse Oximetry 97 03/25/18 10:40 <Mario Alberto Marin DO - Last Filed: 03/28/18 18:18> Initial Vital Signs Initial Vital Signs: Vital Signs Temperature 100.1 F H 03/25/18 10:40 Pulse Rate 96 H 03/25/18 10:40 Respiratory Rate 14 03/25/18 10:40 Blood Pressure 113/68 03/25/18 10:40 Pulse Oximetry 97 03/25/18 10:40 Course <CYNDY AllisonP-BC - Last Filed: 03/25/18 23:06> Course Narrative: I met with the patient and his several times throughout his stay in the emergency department. I spoke with Dr. Bell, his urologist from [facility] who recommended stopping the Levaquin and starting Bactrim. He also recommended IM ceftriaxone. He states he plans on following up with the patient tomorrow or the next day. Patient remained hemodynamically stable in the emergency department. Orders Ordered: Discontinued Medications Acetaminophen (Tylenol) 975 mg PO NOW ONE Stop: 03/25/18 15:58 Last Admin: 03/25/18 16:33 Dose: 975 mg Ceftriaxone Sodium (Rocephin) 1,000 mg IM NOW ONE Stop: 03/25/18 16:15 Last Admin: 03/25/18 16:34 Dose: 1,000 mg Lidocaine HCl (Xylocaine 1%) 4.2 ml INJ NOW ONE Stop: 03/25/18 16:15 Trimethoprim/Sulfamethoxazole (Bactrim Ds) 1 tab PO NOW ONE Stop: 03/25/18 16:15 Last Admin: 03/25/18 16:38 Dose: 1 tab Vital Signs - 8 hr 03/25/18 15:08 03/25/18 16:41 Temperature 100.4 F H Pulse Rate 87 87 Respiratory Rate 16 16 Blood Pressure [Right Arm] 129/60 143/58 H Pulse Oximetry 94 <Mario Alberto Marin DO - Last Filed: 03/28/18 18:18> Orders Ordered: Discontinued Medications Acetaminophen (Tylenol) 975 mg PO NOW ONE Stop: 03/25/18 15:58 Last Admin: 03/25/18 16:33 Dose: 975 mg Ceftriaxone Sodium (Rocephin) 1,000 mg IM NOW ONE Stop: 03/25/18 16:15 Last Admin: 03/25/18 16:34 Dose: 1,000 mg Lidocaine HCl (Xylocaine 1%) 4.2 ml INJ NOW ONE Stop: 03/25/18 16:15 Trimethoprim/Sulfamethoxazole (Bactrim Ds) 1 tab PO NOW ONE Stop: 03/25/18 16:15 Last Admin: 03/25/18 16:38 Dose: 1 tab Vital Signs - 8 hr 03/25/18 15:08 03/25/18 16:41 Temperature 100.4 F H Pulse Rate 87 87 Respiratory Rate 16 16 Blood Pressure [Right Arm] 129/60 143/58 H Pulse Oximetry 94 MDM - Fever <Qiana Sarah, CARDING SUPERVISOR-BC - Last Filed: 03/25/18 23:06> Lab Data Result diagrams: 03/25/18 13:18 03/25/18 13:45 Lab Results 03/25/18 03/25/18 03/25/18 Range/Units 13:05 13:18 13:18 WBC 7.2 (4.5-11.0) X10^3/uL RBC 5.09 (4.5-5.9) X10^6/uL Hgb 14.1 (13.5-17.5) g/dL Hct 42.3 (41-53) % MCV 83.1 (80-100) fL MCH 27.8 (26-34) PG MCHC 33.5 (30-36) % RDW 15.3 H (11.6-14.8) % Plt Count 211 (150-400) X10^3/uL Neut % (Auto) 77.2 H (50-75) % Lymph % (Auto) 11.2 L (25-40) % Monroe % (Auto) 6.6 (3-14) % Eos % (Auto) 4.4 H (2-4) % Baso % (Auto) 0.6 (0-2) % Neut # (Auto) 5500 (2560-9776) /uL Sodium (137-145) mmol/L Potassium (3.4-5.1) mmol/L Chloride (98-107) mmol/L Carbon Dioxide (22-32) mmol/L BUN (9-20) mg/dL Creatinine (0.66-1.25) mg/dL Estimated GFR (>60) mL/min BUN/Creatinine Ratio (6-22) Glucose (80-110) mg/dL Lactate 0.9 (0.7-2.1) mmol/L Calcium (8.4-10.2) mg/dL Total Bilirubin (0.2-1.3) mg/dL AST (17-59) IU/L ALT (21-72) IU/L Alkaline Phosphatase (38-126) U/L Total Protein (6.3-8.2) g/dL Albumin (3.5-5.0) g/dL Globulin (1.7-4.1) g/dL Albumin/Globulin Ratio (1.0-2.8) Urine Color Yellow Urine Appearance Clear Urine pH 5.0 (4.5-8.0) Ur Specific Lincoln 1.010 (1.000-1.035) Urine Protein Negative (Negative) Urine Glucose (UA) Negative (Normal) g/dL Urine Ketones Negative (NEGATIVE) Urine Occult Blood 2+ H (Negative) Urine Nitrate Negative (Negative) Urine Bilirubin Negative (NEGATIVE) Urine Urobilinogen 0.2 (0.2) E.U./dL Ur Leukocyte Esterase Negative (NEGATIVE) Urine RBC 0-1/hpf (0-5/HPF) Urine WBC 0-1/hpf (0-5/HPF) Ur Squamous Epith Cells None seen Urine Bacteria Occasional (0-1) (None) Ur Culture Indicated? Cult not indicated Micro UA Comment Not Reportable Influenza A & B (PCR) (Negative) 03/25/18 03/25/18 Range/Units 13:45 Unknown WBC (4.5-11.0) X10^3/uL RBC (4.5-5.9) X10^6/uL Hgb (13.5-17.5) g/dL Hct (41-53) % MCV (80-100) fL MCH (26-34) PG MCHC (30-36) % RDW (11.6-14.8) % Plt Count (150-400) X10^3/uL Neut % (Auto) (50-75) % Lymph % (Auto) (25-40) % Monroe % (Auto) (3-14) % Eos % (Auto) (2-4) % Baso % (Auto) (0-2) % Neut # (Auto) (5498-6623) /uL Sodium 138 (137-145) mmol/L Potassium 3.6 (3.4-5.1) mmol/L Chloride 98 (98-107) mmol/L Carbon Dioxide 28 (22-32) mmol/L BUN 16 (9-20) mg/dL Creatinine 1.00 (0.66-1.25) mg/dL Estimated GFR > 60.0 (>60) mL/min BUN/Creatinine Ratio 16.0 (6-22) Glucose 92 (80-110) mg/dL Lactate (0.7-2.1) mmol/L Calcium 8.6 (8.4-10.2) mg/dL Total Bilirubin 0.6 (0.2-1.3) mg/dL AST 22 (17-59) IU/L ALT 25 (21-72) IU/L Alkaline Phosphatase 49 (38-126) U/L Total Protein 7.0 (6.3-8.2) g/dL Albumin 3.8 (3.5-5.0) g/dL Globulin 3.2 (1.7-4.1) g/dL Albumin/Globulin Ratio 1.2 (1.0-2.8) Urine Color Urine Appearance Urine pH (4.5-8.0) Ur Specific Lincoln (1.000-1.035) Urine Protein (Negative) Urine Glucose (UA) (Normal) g/dL Urine Ketones (NEGATIVE) Urine Occult Blood (Negative) Urine Nitrate (Negative) Urine Bilirubin (NEGATIVE) Urine Urobilinogen (0.2) E.U./dL Ur Leukocyte Esterase (NEGATIVE) Urine RBC (0-5/HPF) Urine WBC (0-5/HPF) Ur Squamous Epith Cells Urine Bacteria (None) Ur Culture Indicated? Micro UA Comment Influenza A & B (PCR) Negative (Negative) MDM Narrative Medical decision making narrative: patient is a 67-year-old male who had a prostate biopsy done last week who presents with fevers as well as a rash. The patient was hemodynamically stable throughout his stay in the emergency department.Given that the rash started after his ciprofloxacin, worsened after his level floxacillin, I highly suspect that this is a drug-related rash. I spoke with his specialist Dr. Vishnu Bell at the [facility] urology regarding a plan and followed his suggested plan of stopping the Levaquin, starting Bactrim and dose of IM Ceftriaxone. I discussed at length return precautions with the patient and his , stated that the urologist plans and speaking with them tomorrow or the next day. Patient had no questions or concerns upon discharge. <Mario Alberto Marin DO - Last Filed: 03/28/18 18:18> Lab Data Lab Results 10/30/18 10/30/18 10/30/18 Range/Units 13:05 13:18 13:18 WBC 7.2 (4.5-11.0) X10^3/uL RBC 5.09 (4.5-5.9) X10^6/uL Hgb 14.1 (13.5-17.5) g/dL Hct 42.3 (41-53) % MCV 83.1 (80-100) fL MCH 27.8 (26-34) PG MCHC 33.5 (30-36) % RDW 15.3 H (11.6-14.8) % Plt Count 211 (150-400) X10^3/uL Neut % (Auto) 77.2 H (50-75) % Lymph % (Auto) 11.2 L (25-40) % Monroe % (Auto) 6.6 (3-14) % Eos % (Auto) 4.4 H (2-4) % Baso % (Auto) 0.6 (0-2) % Neut # (Auto) 5500 (6663-6176) /uL Sodium (137-145) mmol/L Potassium (3.4-5.1) mmol/L Chloride (98-107) mmol/L Carbon Dioxide (22-32) mmol/L BUN (9-20) mg/dL Creatinine (0.66-1.25) mg/dL Estimated GFR (>60) mL/min BUN/Creatinine Ratio (6-22) Glucose (80-110) mg/dL Lactate 0.9 (0.7-2.1) mmol/L Calcium (8.4-10.2) mg/dL Total Bilirubin (0.2-1.3) mg/dL AST (17-59) IU/L ALT (21-72) IU/L Alkaline Phosphatase (38-126) U/L Total Protein (6.3-8.2) g/dL Albumin (3.5-5.0) g/dL Globulin (1.7-4.1) g/dL Albumin/Globulin Ratio (1.0-2.8) Urine Color Yellow Urine Appearance Clear Urine pH 5.0 (4.5-8.0) Ur Specific Lincoln 1.010 (1.000-1.035) Urine Protein Negative (Negative) Urine Glucose (UA) Negative (Normal) g/dL Urine Ketones Negative (NEGATIVE) Urine Occult Blood 2+ H (Negative) Urine Nitrate Negative (Negative) Urine Bilirubin Negative (NEGATIVE) Urine Urobilinogen 0.2 (0.2) E.U./dL Ur Leukocyte Esterase Negative (NEGATIVE) Urine RBC 0-1/hpf (0-5/HPF) Urine WBC 0-1/hpf (0-5/HPF) Ur Squamous Epith Cells None seen Urine Bacteria Occasional (0-1) (None) Ur Culture Indicated? Cult not indicated Micro UA Comment Not Reportable Influenza A & B (PCR) (Negative) 03/25/18 03/25/18 Range/Units 13:45 Unknown WBC (4.5-11.0) X10^3/uL RBC (4.5-5.9) X10^6/uL Hgb (13.5-17.5) g/dL Hct (41-53) % MCV (80-100) fL MCH (26-34) PG MCHC (30-36) % RDW (11.6-14.8) % Plt Count (150-400) X10^3/uL Neut % (Auto) (50-75) % Lymph % (Auto) (25-40) % Monroe % (Auto) (3-14) % Eos % (Auto) (2-4) % Baso % (Auto) (0-2) % Neut # (Auto) (8168-6468) /uL Sodium 138 (137-145) mmol/L Potassium 3.6 (3.4-5.1) mmol/L Chloride 98 (98-107) mmol/L Carbon Dioxide 28 (22-32) mmol/L BUN 16 (9-20) mg/dL Creatinine 1.00 (0.66-1.25) mg/dL Estimated GFR > 60.0 (>60) mL/min BUN/Creatinine Ratio 16.0 (6-22) Glucose 92 (80-110) mg/dL Lactate (0.7-2.1) mmol/L Calcium 8.6 (8.4-10.2) mg/dL Total Bilirubin 0.6 (0.2-1.3) mg/dL AST 22 (17-59) IU/L ALT 25 (21-72) IU/L Alkaline Phosphatase 49 (38-126) U/L Total Protein 7.0 (6.3-8.2) g/dL Albumin 3.8 (3.5-5.0) g/dL Globulin 3.2 (1.7-4.1) g/dL Albumin/Globulin Ratio 1.2 (1.0-2.8) Urine Color Urine Appearance Urine pH (4.5-8.0) Ur Specific Lincoln (1.000-1.035) Urine Protein (Negative) Urine Glucose (UA) (Normal) g/dL Urine Ketones (NEGATIVE) Urine Occult Blood (Negative) Urine Nitrate (Negative) Urine Bilirubin (NEGATIVE) Urine Urobilinogen (0.2) E.U./dL Ur Leukocyte Esterase (NEGATIVE) Urine RBC (0-5/HPF) Urine WBC (0-5/HPF) Ur Squamous Epith Cells Urine Bacteria (None) Ur Culture Indicated? Micro UA Comment Influenza A & B (PCR) Negative (Negative) Discharge Plan Departure Patient Disposition: Home Clinical Impression: Fever of unknown origin Discharge Date/Time: 03/25/18 17:23 Interventions: ED Discharge Assessment Last Done: 03/25/18 17:22 Instructions: DI for Fever (Symptom) -- Adult Activity Restrictions/Additional Instructions: I spoke with your urologist today. He suggest switching your antibiotics so please stop taking Levaquin and start taking Bactrim. We also gave you an antibiotic injection in the emergency department. Please continue Tylenol and/or ibuprofen as needed for fever and comfort. I suspect the rash will improve after he stopped taking the Levaquin. Please follow-up with her primary care provider if needed. You should also hear from your urologist tomorrow or the next day. Prescriptions: New sulfamethoxazole-trimethoprim [Bactrim DS] 800-160 mg tablet 1 tab PO BID Qty: 20 RF: 0 No Action [FISH OIL] Q DAY Qty: 0 RF: 0 [GLUCOSAMINE/CHOND] PO Q DAY Qty: 0 RF: 0 atorvastatin 10 mg tablet 1 tab PO DAILY RF: 0 lisinopril-hydrochlorothiazide 20-12.5 mg tablet 1 tab PO DAILY RF: 0 levofloxacin [Levaquin] 500 mg tablet 500 mg PO DAILY Qty: 7 RF: 0 Referrals: Honey Shahid PA-C [Primary Care Provider] - <Mario Alberto Marin DO - Last Filed: 03/28/18 18:18> Cosign ED Attending Cosignature Attestation: I was available for consultation during this patient's emergency department encounter
[2018-03-25 13:12] LABS: Appearance Urine UA CLEAR; Bilirubin Urine UA NEGATIVE (NEGATIVE); Color Urine UA YELLOW; Glucose Urine UA NEGATIVE (Normal); Ketones Urine UA NEGATIVE (NEGATIVE); Leukocyte Esterase Urine UA NEGATIVE (NEGATIVE); Nitrite Urine UA NEGATIVE (Negative); Occult Blood Urine UA 2+ (Negative); Protein Urine UA NEGATIVE (Negative); Urobilinogen Urine UA 0.2 E.U./dL (0.2)
[2018-03-25 13:25] LABS: Bacteria Urine Occasional (0-1); Culture Indicated Urine Cult Not Indicated; RBC Urine 0-1/HPF (0-5/HPF); Squamous Epithelial Cell Urine None Seen; WBC Urine 0-1/HPF (0-5/HPF)
[2018-03-25 13:37] VITALS: BP 124/69; PULSE 70; RESP 18; TEMP 37.4; O2SAT 99
[2018-03-25 13:37] LABS: Add Manual Diff / Slide Review NO; Basophils Percent Auto 0.6 % (0-2); Eosinophils Percent Auto 4.4 % (2-4); Hematocrit 42.3 % (41-53); Hemoglobin 14.1 g/dL (13.5-17.5); Lymphocytes Percent Auto 11.2 % (25-40); Mean Corpuscular HGB Conc 33.5 % (30-36); Mean Corpuscular Hemoglobin 27.8 PG (26-34); Mean Corpuscular Volume 83.1 fL (80-100); Monocytes Percent Auto 6.6 % (3-14); Neutrophils Absolute Auto 5500 /uL (3000-5900); Neutrophils Percent Auto 77.2 % (50-75); Platelet Count 211 X10^3/uL (150-400); Red Blood Cell Count 5.09 X10^6/uL (4.5-5.9); Red Cell Distribution Width 15.3 % (11.6-14.8); White Blood Cell Count 7.2 X10^3/uL (4.5-11.0)
[2018-03-25 13:44] LABS: Alanine Aminotransferase 25 IU/L (21-72); Albumin 3.8 g/dL (3.5-5.0); Albumin Globulin Ratio 1.2 (1.0-2.8); Alkaline Phosphatase 49 U/L (38-126); Aspartate Aminotransferase 22 IU/L (17-59); Bilirubin Total 0.6 mg/dL (0.2-1.3); Blood Urea Nitrogen 16 mg/dL (9-20); Calcium 8.6 mg/dL (8.4-10.2); Carbon Dioxide 28 mmol/L (22-32); Chloride 98 mmol/L (98-107); Estimated Glomerular Filt Rate > 60.0 mL/min (>60); Globulin 3.2 g/dL (1.7-4.1); Glucose 92 mg/dL (80-110); HEMOLYSIS < 15 (0-50); Potassium 3.6 mmol/L (3.4-5.1); Sodium 138 mmol/L (137-145)
[2018-03-25 14:00] VITALS: TEMP 37.1
[2018-03-25 14:08] VITALS: BP 138/67; PULSE 84; RESP 16; O2SAT 98
[2018-03-25 14:18] LABS: Lactate (Lactic Acid) 0.9 mmol/L (0.7-2.1)
[2018-03-25 15:08] VITALS: BP 129/60; PULSE 87; RESP 16; O2SAT 94
[2018-03-25] MEDS: ACETAMINOPHEN 325 MG TABLET 975 MG PO (16:33)
[2018-03-25] MEDS: cefTRIAXone 2,000 MG VIAL 1000 MG IM (16:34)
[2018-03-25] MEDS: TRIMETH/SULFA 160/800 (DS) TABLET 1 TAB PO (16:38)
[2018-03-25 16:41] VITALS: BP 143/58; PULSE 87; RESP 16; TEMP 38
== END 2018-03-25 17:23 | disposition home or self-care (01) ==
PROVIDERS: Emergency Medicine; Emergency Provider Nurse Practitioner Family; Family Provider Physician Assistant; PCP Physician Assistant
DX: R50.9 Fever, unspecified (principal)
CPT/HCPCS: 36415; 80053; 81001; 83605; 85025; 87400; 96372; 99283; J0696

== ENCOUNTER → 2018-04-14 13:02 | Outpatient (REF) | payer MEDICARE, OTHER, SELFPAY ==
[2018-04-14 13:46] LABS: Add Manual Diff / Slide Review NO; Basophils Percent Auto 0.5 % (0-2); Eosinophils Percent Auto 0.7 % (2-4); Hematocrit 42.9 % (41-53); Hemoglobin 13.8 g/dL (13.5-17.5); Mean Corpuscular HGB Conc 32.2 % (30-36); Mean Corpuscular Hemoglobin 27.2 PG (26-34); Mean Corpuscular Volume 84.6 fL (80-100); Monocytes Percent Auto 8.5 % (3-14); Neutrophils Absolute Auto 9300 /uL (3000-5900); Neutrophils Percent Auto 77.3 % (50-75); Platelet Count 415 X10^3/uL (150-400); Red Blood Cell Count 5.07 X10^6/uL (4.5-5.9); Red Cell Distribution Width 15.7 % (11.6-14.8); White Blood Cell Count 12.1 X10^3/uL (4.5-11.0)
[2018-04-14 14:10] LABS: Uric Acid 6.1 mg/dL (3.5-8.5)
== END ==
LOC: LAB 13:02
PROVIDERS: Family Provider Physician Assistant; PCP Physician Assistant; Visit Provider Physician Assistant
DX: M12.9 Arthropathy, unspecified (principal)
CPT/HCPCS: 84550; 85025

== ENCOUNTER → 2018-05-21 15:12 | Outpatient (CLI) | payer MEDICARE, OTHER, SELFPAY ==
--- NOTE | 2018-05-21 | DI.US.S_ITS ---
PROCEDURE: US PERIPH VENOUS LOW EXTREM LT INDICATIONS: Pain in left lower leg TECHNIQUE: Real-time imaging, as well as color and pulse Doppler interrogation, were performed of the lower extremity deep veins from the inguinal ligament to the popliteal fossa. COMPARISON: None. FINDINGS: The deep veins are normally compressible, and free of intraluminal thrombus. Color and pulse Doppler demonstrate normal phasic intraluminal flow. There is normal augmentation response to distal compression maneuver. Overall, no DVT found. There is an apparent hematoma involving the posterior mid calf on the right measuring up to 3.1 x 6.5 x 15.7 cm with no internal blood flow that would indicate presence of pseudoaneurysm. Hyperemia along the borders is not found. IMPRESSION: No DVT found. What appears to be a large hematoma is identified along the posterior mid calf and the current clinical concern. Please correlate clinically for risk factors. Please correlate clinically for signs and symptoms of infection. Dictated by: Jose Roberto Choi M.D. on 05/21/2018 at 16:32 Approved by: Jose Roberto Choi M.D. on 05/21/2018 at 16:33
== END ==
PROVIDERS: Family Provider Physician Assistant; PCP Physician Assistant; Visit Provider Physician Assistant
DX: M79.662 Pain in left lower leg (principal)
CPT/HCPCS: 93971

== ENCOUNTER → 2018-06-11 15:17 | Outpatient (CLI) | payer MEDICARE, OTHER, SELFPAY ==
[2018-06-11 16:12] LABS: PTT Partial Thromboplastin Tim 31 SECONDS (26.4-36.2)
== END ==
PROVIDERS: Family Provider Physician Assistant; PCP Physician Assistant; Visit Provider Physician Assistant
DX: M79.81 Nontraumatic hematoma of soft tissue (principal)
CPT/HCPCS: 36415; 85730

== ENCOUNTER 2018-10-23 15:11 | Emergency (ER) | payer MEDICARE, OTHER, SELFPAY ==
[2018-10-23 15:14] VITALS: BP 118/81; PULSE 76; RESP 15; TEMP 36.8; O2SAT 99; BMI 33.0
--- NOTE | 2018-10-23 16:58 | ED.ABDPAIN ---
HPI - Abdominal Pain <Eliz Brothers MD - Last Filed: 10/23/18 20:59> General Chief Complaint: Abdominal Pain Stated Complaint: fatigue, stomach issues Time Seen by Provider: 10/23/18 16:37 Source: patient and family Mode of arrival: ambulatory Limitations: no limitations History of Present Illness HPI narrative: Patient complains of abdominal discomfort and ?sour stomach? with decreased appetite for the last 2 weeks. Patient's states that the patient has seemed to have a low-grade fever most days. When she has measured, his temperature has been between 99 and 100. Patient states that today, he was outside in the warm sunshine, and he began to feel a sense of chills. He states he had been wearing his thick, long sleeve shirt in the house over the last couple of days, even though the thermostat read 79?. The patient denies any actual pain in his abdomen but states the discomfort is more of a pressure sensation. He denies any nausea or vomiting. No diarrhea. He states he has actually been a little bit constipated, but he thinks that is because he has not been eating anything. The patient states he was able to eat a cheese stick and some ice cream today, as that was the only thing his stomach would really tolerate. He states the last meal before that was ?a little bit? of salmon. The patient has a history of low-grade, ongoing prostate cancer, for which he is monitored by his primary care physician. The patient also has a history of small colon masses with two colectomies of small size. Patient states he never had a colostomy, but had immediate reanastomosis, and still has most of his colon. Related Data Home Medications Medication Instructions Recorded Confirmed [FISH OIL] Q DAY #0 12/20/09 [GLUCOSAMINE/CHOND] PO Q DAY #0 12/20/09 atorvastatin 1 tab PO DAILY 03/25/18 10/23/18 lisinopril-hydrochlorothiazide 1 tab PO DAILY 03/25/18 03/25/18 Allergies Allergy/AdvReac Type Severity Reaction Status Date / Time No Known Drug Allergies Allergy Verified 03/25/18 10:43 Review of Systems <Eliz Brothers MD - Last Filed: 10/23/18 20:59> Constitutional Reports chills, Reports fever(s), Denies lethargy and Denies weakness Comments: Fatigue Eyes Denies change in vision, Denies eye discharge, Denies irritation and Denies loss of vision ENT Ears, Nose, Mouth, and Throat: Denies change in voice, Denies neck pain and Denies sore throat Cardiovascular Denies chest pain, Denies irregular heart rhythm, Denies lightheadedness, Denies palpitations, Denies dyspnea, Denies dyspnea on exertion and Denies orthopnea Respiratory Denies cough, Denies dyspnea, Denies dyspnea on exertion and Denies wheezing Gastrointestinal Gastrointestinal: Reports abdominal pain (Discomfort), Denies change in bowel habits, Denies diarrhea, Denies nausea and Denies vomiting Genitourinary Denies hematuria, Denies flank pain, Denies urinary incontinence and Denies urinary urgency Musculoskeletal Denies neck pain Integumentary/Breasts Denies pruritus, Denies erythema, Denies rash and Denies wounds Neurologic Denies confusion, Denies loss of vision and Denies weakness Psychiatric Denies anxiety, Denies confusion, Denies depression, Denies homicidal ideation and Denies suicidal ideation Endocrine Denies palpitations Hematologic/Lymphatic Denies easy bruising Allergic/Immunologic Denies wheezing PFSH <Eliz Brothers MD - Last Filed: 10/23/18 20:59> Medical History Prostate CA (Acute) Surgical History History of total left knee replacement (Acute) Social History Smoking Status: Never smoker Social History Smoking Status: Never smoker Exam <Eliz Brothers MD - Last Filed: 10/23/18 20:59> Initial Vital Signs Initial Vital Signs: Vital Signs Temperature 98.2 F 10/23/18 15:14 Pulse Rate 76 10/23/18 15:14 Respiratory Rate 15 10/23/18 15:14 Blood Pressure 118/81 10/23/18 15:14 Pulse Oximetry 99 10/23/18 15:14 Const General: cooperative and well developed Nutritional Appearance: well nourished Orientation: alert, awake, oriented x3 and not confused HENMT Head: normocephalic and atraumatic Ears: external ears normal Nose: external nose normal and No nasal discharge Face and sinus: face symmetric and No dry mucous membranes Mouth: oral mucosae normal and moist mucous membranes Teeth and gingiva: dentition normal Eyes General: appearance normal, both eyes and all related structures Eyelids: eyelids normal Conjunctivae: conjunctivae normal Sclera: sclerae normal Pupils: PERRL EOM: EOM intact bilaterally Neck Neck: normal visual inspection, trachea midline, No lymphadenopathy, No midline deformity and No JVD Lymphatic: No lymphedema Chest Chest: normal inspection of the chest Resp Effort & Inspection: normal respiratory effort, able to speak in complete sentences, no respiratory distress and no use of accessory muscles Auscultation: clear to auscultation bilaterally, no rales, no rhonchi and no wheezes Cardio Rate: regular rate Rhythm: regular rhythm Heart Sounds: no click, no gallops, no murmurs and no rubs Pulses: normal peripheral pulses GI Inspection: non-distended Palpation: soft, no hepatosplenomegaly, No guarding, No pulsatile mass and No tender Auscultation: normal bowel sounds Back/Spine/Pelvis Back: No CVA tenderness Cervical Spine: cervical ROM normal and No pain with cervical ROM Thoracic/Lumbar Spine: thoracic and lumbar spine normal to inspection Skin General: no rashes or lesions noted, No jaundice and No petechiae Neuro General: alert, oriented x3, gait normal and no focal motor deficits Speech: speech normal Extrem General: full ROM, no clubbing, cyanosis or edema, no pedal edema and no calf tenderness Psych Appearance: well kempt Mental Status: mental status grossly normal Attitude: cooperative Thought Content: normal and suicidality Judgment: judgment good <Mario Alberto Marin DO - Last Filed: 10/24/18 00:47> Initial Vital Signs Initial Vital Signs: Vital Signs Temperature 98.2 F 10/23/18 15:14 Pulse Rate 76 10/23/18 15:14 Respiratory Rate 15 10/23/18 15:14 Blood Pressure 118/81 10/23/18 15:14 Pulse Oximetry 99 10/23/18 15:14 Course <Eliz Brothers MD - Last Filed: 10/23/18 20:59> Course Narrative: Patient was worked up with labs, urinalysis, and CT scan, and given IV fluids and Protonix. Pt was signed out to Dr. Marin at change of shift, pending CT results. Orders Ordered: ED Orders 10/23/18 17:30 Complete Blood Count AUTO DIFF Stat Comprehensive Metabolic Panel Stat Lipase Stat 10/23/18 18:31 CT abdomen pelvis w con Stat 10/23/18 19:23 Urinalysis and Microscopic Stat Discontinued Medications Sodium Chloride (Normal Saline 0.9%) 1,000 mls @ 1,000 mls/hr IV BOLUS ONE Stop: 10/23/18 17:54 Last Infusion: 10/23/18 19:42 Dose: 0 mls/hr Admin: 10/23/18 17:46 Dose: 1,000 mls/hr Pantoprazole Sodium (Protonix) 40 mg IV NOW ONE Stop: 10/23/18 16:57 Last Admin: 10/23/18 17:46 Dose: 40 mg Vital Signs - 8 hr 10/23/18 18:43 Pulse Rate 65 Respiratory Rate 18 Blood Pressure [Right Arm] 129/70 Pulse Oximetry 100 <Mario Alberto Marin DO - Last Filed: 10/24/18 00:47> Orders Ordered: ED Orders 10/23/18 17:30 Complete Blood Count AUTO DIFF Stat Comprehensive Metabolic Panel Stat Lipase Stat 10/23/18 18:31 CT abdomen pelvis w con Stat 10/23/18 19:23 Urinalysis and Microscopic Stat Discontinued Medications Sodium Chloride (Normal Saline 0.9%) 1,000 mls @ 1,000 mls/hr IV BOLUS ONE Stop: 10/23/18 17:54 Last Infusion: 10/23/18 19:42 Dose: 0 mls/hr Admin: 10/23/18 17:46 Dose: 1,000 mls/hr Pantoprazole Sodium (Protonix) 40 mg IV NOW ONE Stop: 10/23/18 16:57 Last Admin: 10/23/18 17:46 Dose: 40 mg Vital Signs - 8 hr 10/23/18 18:43 Pulse Rate 65 Respiratory Rate 18 Blood Pressure [Right Arm] 129/70 Pulse Oximetry 100 MDM - Abdominal Pain <Eliz Brothers MD - Last Filed: 10/23/18 20:59> Lab Data Result diagrams: 10/23/18 17:30 10/23/18 17:30 Lab Results 05/30/19 05/30/19 05/30/19 Range/Units 17:30 17:30 19:23 WBC 9.4 (4.5-11.0) X10^3/uL RBC 5.77 (4.5-5.9) X10^6/uL Hgb 17.0 (13.5-17.5) g/dL Hct 50.0 (41-53) % MCV 86.6 (80-100) fL MCH 29.4 (26-34) PG MCHC 33.9 (30-36) % RDW 13.7 (11.6-14.8) % Plt Count 321 (150-400) X10^3/uL Neut % (Auto) 68.8 (50-75) % Lymph % (Auto) 21.1 L (25-40) % [place] % (Auto) 8.5 (3-14) % Eos % (Auto) 0.9 L (2-4) % Baso % (Auto) 0.7 (0-2) % Neut # (Auto) 6400 (8319-1794) /uL Lymph # (Auto) 2000 (7591-2574) /uL Mayes # (Auto) 800 (0-900) /uL Eos # (Auto) 100 (0-450) /uL Baso # (Auto) 100 (0-100) /uL Sodium 137 (137-145) mmol/L Potassium 3.7 (3.4-5.1) mmol/L Chloride 97 L (98-107) mmol/L Carbon Dioxide 27 (22-32) mmol/L BUN 19 (9-20) mg/dL Creatinine 0.90 (0.66-1.25) mg/dL Estimated GFR > 60.0 (>60) mL/min BUN/Creatinine Ratio 21.1 (6-22) Glucose 86 (80-110) mg/dL Calcium 9.7 (8.4-10.2) mg/dL Total Bilirubin 1.0 (0.2-1.3) mg/dL AST 22 (17-59) IU/L ALT 15 L (21-72) IU/L Alkaline Phosphatase 49 (38-126) U/L Total Protein 8.0 (6.3-8.2) g/dL Albumin 4.6 (3.5-5.0) g/dL Globulin 3.4 (1.7-4.1) g/dL Albumin/Globulin Ratio 1.4 (1.0-2.8) Lipase 199 (23-300) U/L Urine Color Yellow Urine Appearance Clear Urine pH 5.0 (4.5-8.0) Ur Specific [place] 1.010 (1.000-1.035) Urine Protein Negative (Negative) Urine Glucose (UA) Negative (Negative) g/dL Urine Ketones 1+ H (NEGATIVE) Urine Occult Blood Trace-lysed (Negative) Urine Nitrate Negative (Negative) Urine Bilirubin Negative (NEGATIVE) Urine Urobilinogen 0.2 (0.2) E.U./dL Ur Leukocyte Esterase Negative (NEGATIVE) Urine RBC 0-1/hpf (0-5/HPF) Urine WBC 0-1/hpf (0-5/HPF) Ur Squamous Epith Cells 0-1 /hpf (0-5/HPF) Urine Bacteria None seen (None) Ur Culture Indicated? Cult not indicated <Mario Alberto Marin, DO - Last Filed: 10/24/18 00:47> Lab Data Lab Results 10/23/18 10/23/18 10/23/18 Range/Units 17:30 17:30 19:23 WBC 9.4 (4.5-11.0) X10^3/uL RBC 5.77 (4.5-5.9) X10^6/uL Hgb 17.0 (13.5-17.5) g/dL Hct 50.0 (41-53) % MCV 86.6 (80-100) fL MCH 29.4 (26-34) PG MCHC 33.9 (30-36) % RDW 13.7 (11.6-14.8) % Plt Count 321 (150-400) X10^3/uL Neut % (Auto) 68.8 (50-75) % Lymph % (Auto) 21.1 L (25-40) % Mayes % (Auto) 8.5 (3-14) % Eos % (Auto) 0.9 L (2-4) % Baso % (Auto) 0.7 (0-2) % Neut # (Auto) 6400 (6095-3756) /uL Lymph # (Auto) 2000 (7163-1922) /uL Mayes # (Auto) 800 (0-900) /uL Eos # (Auto) 100 (0-450) /uL Baso # (Auto) 100 (0-100) /uL Sodium 137 (137-145) mmol/L Potassium 3.7 (3.4-5.1) mmol/L Chloride 97 L (98-107) mmol/L Carbon Dioxide 27 (22-32) mmol/L BUN 19 (9-20) mg/dL Creatinine 0.90 (0.66-1.25) mg/dL Estimated GFR > 60.0 (>60) mL/min BUN/Creatinine Ratio 21.1 (6-22) Glucose 86 (80-110) mg/dL Calcium 9.7 (8.4-10.2) mg/dL Total Bilirubin 1.0 (0.2-1.3) mg/dL AST 22 (17-59) IU/L ALT 15 L (21-72) IU/L Alkaline Phosphatase 49 (38-126) U/L Total Protein 8.0 (6.3-8.2) g/dL Albumin 4.6 (3.5-5.0) g/dL Globulin 3.4 (1.7-4.1) g/dL Albumin/Globulin Ratio 1.4 (1.0-2.8) Lipase 199 (23-300) U/L Urine Color Yellow Urine Appearance Clear Urine pH 5.0 (4.5-8.0) Ur Specific [place] 1.010 (1.000-1.035) Urine Protein Negative (Negative) Urine Glucose (UA) Negative (Negative) g/dL Urine Ketones 1+ H (NEGATIVE) Urine Occult Blood Trace-lysed (Negative) Urine Nitrate Negative (Negative) Urine Bilirubin Negative (NEGATIVE) Urine Urobilinogen 0.2 (0.2) E.U./dL Ur Leukocyte Esterase Negative (NEGATIVE) Urine RBC 0-1/hpf (0-5/HPF) Urine WBC 0-1/hpf (0-5/HPF) Ur Squamous Epith Cells 0-1 /hpf (0-5/HPF) Urine Bacteria None seen (None) Ur Culture Indicated? Cult not indicated Imaging Data CT scan - abdomen: Radiologist's impression: CT Scan Report Signed Patient: Buddy Maloney [facility]#: [id number] : 1Acct:[id number] Age/Sex: 67 / MDate of Service: 10/23/18 Loc: ED Accession Number: [id number] Procedure: CT abdomen pelvis w con Ordering Provider: Eliz Brothers MD PROCEDURE: CT ABDOMEN PELVIS W CON INDICATIONS: L abd pain TECHNIQUE: After the administration of intravenous contrast, 5 mm thick sections acquired from the diaphragm to the symphysis. 5 mm coronal and sagittal reformats were acquired. For radiation dose reduction, the following was used: automated exposure control, adjustment of mA and/or kV according to patient size. COMPARISON: [facility], CT, ABDOMEN/PELVIS WITH CONTRAST, 11/23/2009, 11:06. FINDINGS: Image quality: Excellent. ABDOMEN: Lung bases: Lung bases are clear. Heart size is normal. Solid organs: Liver is normal in size and enhancement. Gallbladder is unremarkable. Biliary system is non dilated. Pancreas enhances normally. Spleen is normal in size and enhancement. No adrenal nodules. Kidneys demonstrate normal size and enhancement, without hydronephrosis. Peritoneum and bowel: Bowel loops demonstrate normal wall thickness and caliber. No free fluid or air. Appendix is unremarkable. Colonic diverticula are present without associated inflammatory change. Nodes and vessels: No retroperitoneal or mesenteric adenopathy by size criteria. Aorta and inferior vena cava are normal in size. Miscellaneous: Supraumbilical fat containing ventral hernia is present with rectus diastases measuring 26 mm. Umbilical fat containing ventral hernias present with diastases of 20 mm. PELVIS: Genitourinary: Bladder wall thickness is normal. Prostate gland is enlarged with areas of exophytic nodularity along the anterior aspect extending to the bladder. This is more prominent when compared to prior exam. Miscellaneous: No inguinal hernias or adenopathy. Bones: Sclerotic changes are present within the posterior iliac bones bilaterally, minimally more prominent when compared to prior exam. Pars defect is noted at L5. No vertebral body compression fractures. IMPRESSION: 1. Diverticulosis. 2. Enlarged prostate with areas of exophytic nodularity increased in prominence compared to 2010. Correlation PSA levels as prostate neoplasm cannot be excluded. 3. Persistent appearance of sclerosis within the iliac bones slightly more prominent when compared to prior exam. Dictated by: Giselle May M.D. on 10/23/2018 at 19:21 Approved by: Giselle May M.D. on 10/23/2018 at 19:26 MDM Narrative Medical decision making narrative: Received turned over from day provider. Reviewed patient's history and physical. Performed my own independent history and physical exam. CT scan returns with no signs of acute pathology. The comparison CT scan from 2009 was prior to his diagnosis of prostate cancer. The enlargement of the prostate noted on today's exam has been followed by his oncologist at the [facility]. He states he just had an appointment within the past 60 days with a PSA which he states was lower than what it has been in the past. He has good follow-up with regarding his prostate cancer. I have no signs of infection to account for his fever. He has no skin changes concerning for cellulitis. Has not had upper respiratory like symptoms. Lungs were clear no cough. No indication for antibiotics. I did go over his CT results with him. Will hold on further workup for now. He will contact his primary doctor for follow-up. We discussed strict return precautions. Both he and his who is at bedside expressed understanding and agreement with plan. Discharge Plan Departure Patient Disposition: Home Clinical Impression: Abdominal distension Fever Qualifiers: Fever type: unspecified Qualified Code(s): R50.9 - Fever, unspecified Discharge Date/Time: 10/23/18 20:13 Interventions: ED Discharge Assessment Last Done: 10/23/18 20:13 Activity Restrictions/Additional Instructions: Recommend that you start taking 150 mg of Zantac 2 times a day. You can buy this [id number] and can buy the generic version of this medication. Take it for the next week until your appointment with your primary doctor. Continue all of your follow-up appointments with your prostate doctor. Return to the emergency department for any new or worsening symptoms Prescriptions: No Action [FISH OIL] Q DAY Qty: 0 RF: 0 [GLUCOSAMINE/CHOND] PO Q DAY Qty: 0 RF: 0 atorvastatin 10 mg tablet 1 tab PO DAILY RF: 0 lisinopril-hydrochlorothiazide 20-12.5 mg tablet 1 tab PO DAILY RF: 0 Referrals: Honey Shahid PA-C [Primary Care Provider] -
--- NOTE | 2018-10-23 17:01 | ED_ITS ---
HPI - Abdominal Pain <Eliz Brothers MD - Last Filed: 10/23/18 20:59> General Chief Complaint: Abdominal Pain Stated Complaint: fatigue, stomach issues Time Seen by Provider: 10/23/18 16:37 Source: patient and family Mode of arrival: ambulatory Limitations: no limitations History of Present Illness HPI narrative: Patient complains of abdominal discomfort and ?sour stomach? with decreased appetite for the last 2 weeks. Patient's states that the patient has seemed to have a low-grade fever most days. When she has measured, his temperature has been between 99 and 100. Patient states that today, he was outside in the warm sunshine, and he began to feel a sense of chills. He states he had been wearing his thick, long sleeve shirt in the house over the last couple of days, even though the thermostat read 79?. The patient denies any actual pain in his abdomen but states the discomfort is more of a pressure sensation. He denies any nausea or vomiting. No diarrhea. He states he has actually been a little bit constipated, but he thinks that is because he has not been eating anything. The patient states he was able to eat a cheese stick and some ice cream today, as that was the only thing his stomach would really tolerate. He states the last meal before that was ?a little bit? of salmon. The patient has a history of low-grade, ongoing prostate cancer, for which he is monitored by his primary care physician. The patient also has a history of small colon masses with two colectomies of small size. Patient states he never had a colostomy, but had immediate reanastomosis, and still has most of his colon. Related Data Home Medications Medication Instructions Recorded Confirmed [FISH OIL] Q DAY #0 12/20/09 [GLUCOSAMINE/CHOND] PO Q DAY #0 12/20/09 atorvastatin 1 tab PO DAILY 03/25/18 10/23/18 lisinopril-hydrochlorothiazide 1 tab PO DAILY 03/25/18 03/25/18 Allergies Allergy/AdvReac Type Severity Reaction Status Date / Time No Known Drug Allergies Allergy Verified 03/25/18 10:43 Review of Systems <Eliz Brothers MD - Last Filed: 10/23/18 20:59> Constitutional Reports chills, Reports fever(s), Denies lethargy and Denies weakness Comments: Fatigue Eyes Denies change in vision, Denies eye discharge, Denies irritation and Denies loss of vision ENT Ears, Nose, Mouth, and Throat: Denies change in voice, Denies neck pain and Denies sore throat Cardiovascular Denies chest pain, Denies irregular heart rhythm, Denies lightheadedness, Denies palpitations, Denies dyspnea, Denies dyspnea on exertion and Denies orthopnea Respiratory Denies cough, Denies dyspnea, Denies dyspnea on exertion and Denies wheezing Gastrointestinal Gastrointestinal: Reports abdominal pain (Discomfort), Denies change in bowel habits, Denies diarrhea, Denies nausea and Denies vomiting Genitourinary Denies hematuria, Denies flank pain, Denies urinary incontinence and Denies urinary urgency Musculoskeletal Denies neck pain Integumentary/Breasts Denies pruritus, Denies erythema, Denies rash and Denies wounds Neurologic Denies confusion, Denies loss of vision and Denies weakness Psychiatric Denies anxiety, Denies confusion, Denies depression, Denies homicidal ideation and Denies suicidal ideation Endocrine Denies palpitations Hematologic/Lymphatic Denies easy bruising Allergic/Immunologic Denies wheezing PFSH <Eliz Brothers MD - Last Filed: 10/23/18 20:59> Medical History Prostate CA (Acute) Surgical History History of total left knee replacement (Acute) Social History Smoking Status: Never smoker Social History Smoking Status: Never smoker Exam <Eliz Brothers MD - Last Filed: 10/23/18 20:59> Initial Vital Signs Initial Vital Signs: Vital Signs Temperature 98.2 F 10/23/18 15:14 Pulse Rate 76 10/23/18 15:14 Respiratory Rate 15 10/23/18 15:14 Blood Pressure 118/81 10/23/18 15:14 Pulse Oximetry 99 10/23/18 15:14 Const General: cooperative and well developed Nutritional Appearance: well nourished Orientation: alert, awake, oriented x3 and not confused HENMT Head: normocephalic and atraumatic Ears: external ears normal Nose: external nose normal and No nasal discharge Face and sinus: face symmetric and No dry mucous membranes Mouth: oral mucosae normal and moist mucous membranes Teeth and gingiva: dentition normal Eyes General: appearance normal, both eyes and all related structures Eyelids: eyelids normal Conjunctivae: conjunctivae normal Sclera: sclerae normal Pupils: PERRL EOM: EOM intact bilaterally Neck Neck: normal visual inspection, trachea midline, No lymphadenopathy, No midline deformity and No JVD Lymphatic: No lymphedema Chest Chest: normal inspection of the chest Resp Effort & Inspection: normal respiratory effort, able to speak in complete sentences, no respiratory distress and no use of accessory muscles Auscultation: clear to auscultation bilaterally, no rales, no rhonchi and no wheezes Cardio Rate: regular rate Rhythm: regular rhythm Heart Sounds: no click, no gallops, no murmurs and no rubs Pulses: normal peripheral pulses GI Inspection: non-distended Palpation: soft, no hepatosplenomegaly, No guarding, No pulsatile mass and No tender Auscultation: normal bowel sounds Back/Spine/Pelvis Back: No CVA tenderness Cervical Spine: cervical ROM normal and No pain with cervical ROM Thoracic/Lumbar Spine: thoracic and lumbar spine normal to inspection Skin General: no rashes or lesions noted, No jaundice and No petechiae Neuro General: alert, oriented x3, gait normal and no focal motor deficits Speech: speech normal Extrem General: full ROM, no clubbing, cyanosis or edema, no pedal edema and no calf tenderness Psych Appearance: well kempt Mental Status: mental status grossly normal Attitude: cooperative Thought Content: normal and suicidality Judgment: judgment good <Mario Alberto Marin DO - Last Filed: 10/24/18 00:47> Initial Vital Signs Initial Vital Signs: Vital Signs Temperature 98.2 F 10/23/18 15:14 Pulse Rate 76 10/23/18 15:14 Respiratory Rate 15 10/23/18 15:14 Blood Pressure 118/81 10/23/18 15:14 Pulse Oximetry 99 10/23/18 15:14 Course <Eliz Brothers MD - Last Filed: 10/23/18 20:59> Course Narrative: Patient was worked up with labs, urinalysis, and CT scan, and given IV fluids and Protonix. Pt was signed out to Dr. Marin at change of shift, pending CT results. Orders Ordered: ED Orders 10/23/18 17:30 Complete Blood Count AUTO DIFF Stat Comprehensive Metabolic Panel Stat Lipase Stat 10/23/18 18:31 CT abdomen pelvis w con Stat 10/23/18 19:23 Urinalysis and Microscopic Stat Discontinued Medications Sodium Chloride (Normal Saline 0.9%) 1,000 mls @ 1,000 mls/hr IV BOLUS ONE Stop: 10/23/18 17:54 Last Infusion: 10/23/18 19:42 Dose: 0 mls/hr Admin: 10/23/18 17:46 Dose: 1,000 mls/hr Pantoprazole Sodium (Protonix) 40 mg IV NOW ONE Stop: 10/23/18 16:57 Last Admin: 10/23/18 17:46 Dose: 40 mg Vital Signs - 8 hr 10/23/18 18:43 Pulse Rate 65 Respiratory Rate 18 Blood Pressure [Right Arm] 129/70 Pulse Oximetry 100 <Mario Alberto Marin DO - Last Filed: 10/24/18 00:47> Orders Ordered: ED Orders 10/23/18 17:30 Complete Blood Count AUTO DIFF Stat Comprehensive Metabolic Panel Stat Lipase Stat 10/23/18 18:31 CT abdomen pelvis w con Stat 10/23/18 19:23 Urinalysis and Microscopic Stat Discontinued Medications Sodium Chloride (Normal Saline 0.9%) 1,000 mls @ 1,000 mls/hr IV BOLUS ONE Stop: 10/23/18 17:54 Last Infusion: 10/23/18 19:42 Dose: 0 mls/hr Admin: 10/23/18 17:46 Dose: 1,000 mls/hr Pantoprazole Sodium (Protonix) 40 mg IV NOW ONE Stop: 10/23/18 16:57 Last Admin: 10/23/18 17:46 Dose: 40 mg Vital Signs - 8 hr 10/23/18 18:43 Pulse Rate 65 Respiratory Rate 18 Blood Pressure [Right Arm] 129/70 Pulse Oximetry 100 MDM - Abdominal Pain <Eliz Brothers MD - Last Filed: 10/23/18 20:59> Lab Data Result diagrams: 10/23/18 17:30 10/23/18 17:30 Lab Results 05/30/19 05/30/19 05/30/19 Range/Units 17:30 17:30 19:23 WBC 9.4 (4.5-11.0) X10^3/uL RBC 5.77 (4.5-5.9) X10^6/uL Hgb 17.0 (13.5-17.5) g/dL Hct 50.0 (41-53) % MCV 86.6 (80-100) fL MCH 29.4 (26-34) PG MCHC 33.9 (30-36) % RDW 13.7 (11.6-14.8) % Plt Count 321 (150-400) X10^3/uL Neut % (Auto) 68.8 (50-75) % Lymph % (Auto) 21.1 L (25-40) % [place] % (Auto) 8.5 (3-14) % Eos % (Auto) 0.9 L (2-4) % Baso % (Auto) 0.7 (0-2) % Neut # (Auto) 6400 (9604-4479) /uL Lymph # (Auto) 2000 (9738-4428) /uL [place] # (Auto) 800 (0-900) /uL Eos # (Auto) 100 (0-450) /uL Baso # (Auto) 100 (0-100) /uL Sodium 137 (137-145) mmol/L Potassium 3.7 (3.4-5.1) mmol/L Chloride 97 L (98-107) mmol/L Carbon Dioxide 27 (22-32) mmol/L BUN 19 (9-20) mg/dL Creatinine 0.90 (0.66-1.25) mg/dL Estimated GFR > 60.0 (>60) mL/min BUN/Creatinine Ratio 21.1 (6-22) Glucose 86 (80-110) mg/dL Calcium 9.7 (8.4-10.2) mg/dL Total Bilirubin 1.0 (0.2-1.3) mg/dL AST 22 (17-59) IU/L ALT 15 L (21-72) IU/L Alkaline Phosphatase 49 (38-126) U/L Total Protein 8.0 (6.3-8.2) g/dL Albumin 4.6 (3.5-5.0) g/dL Globulin 3.4 (1.7-4.1) g/dL Albumin/Globulin Ratio 1.4 (1.0-2.8) Lipase 199 (23-300) U/L Urine Color Yellow Urine Appearance Clear Urine pH 5.0 (4.5-8.0) Ur Specific [place] 1.010 (1.000-1.035) Urine Protein Negative (Negative) Urine Glucose (UA) Negative (Negative) g/dL Urine Ketones 1+ H (NEGATIVE) Urine Occult Blood Trace-lysed (Negative) Urine Nitrate Negative (Negative) Urine Bilirubin Negative (NEGATIVE) Urine Urobilinogen 0.2 (0.2) E.U./dL Ur Leukocyte Esterase Negative (NEGATIVE) Urine RBC 0-1/hpf (0-5/HPF) Urine WBC 0-1/hpf (0-5/HPF) Ur Squamous Epith Cells 0-1 /hpf (0-5/HPF) Urine Bacteria None seen (None) Ur Culture Indicated? Cult not indicated <Mario Alberto Marin, DO - Last Filed: 10/24/18 00:47> Lab Data Lab Results 10/23/18 10/23/18 10/23/18 Range/Units 17:30 17:30 19:23 WBC 9.4 (4.5-11.0) X10^3/uL RBC 5.77 (4.5-5.9) X10^6/uL Hgb 17.0 (13.5-17.5) g/dL Hct 50.0 (41-53) % MCV 86.6 (80-100) fL MCH 29.4 (26-34) PG MCHC 33.9 (30-36) % RDW 13.7 (11.6-14.8) % Plt Count 321 (150-400) X10^3/uL Neut % (Auto) 68.8 (50-75) % Lymph % (Auto) 21.1 L (25-40) % [place] % (Auto) 8.5 (3-14) % Eos % (Auto) 0.9 L (2-4) % Baso % (Auto) 0.7 (0-2) % Neut # (Auto) 6400 (7907-3928) /uL Lymph # (Auto) 2000 (2185-3653) /uL [place] # (Auto) 800 (0-900) /uL Eos # (Auto) 100 (0-450) /uL Baso # (Auto) 100 (0-100) /uL Sodium 137 (137-145) mmol/L Potassium 3.7 (3.4-5.1) mmol/L Chloride 97 L (98-107) mmol/L Carbon Dioxide 27 (22-32) mmol/L BUN 19 (9-20) mg/dL Creatinine 0.90 (0.66-1.25) mg/dL Estimated GFR > 60.0 (>60) mL/min BUN/Creatinine Ratio 21.1 (6-22) Glucose 86 (80-110) mg/dL Calcium 9.7 (8.4-10.2) mg/dL Total Bilirubin 1.0 (0.2-1.3) mg/dL AST 22 (17-59) IU/L ALT 15 L (21-72) IU/L Alkaline Phosphatase 49 (38-126) U/L Total Protein 8.0 (6.3-8.2) g/dL Albumin 4.6 (3.5-5.0) g/dL Globulin 3.4 (1.7-4.1) g/dL Albumin/Globulin Ratio 1.4 (1.0-2.8) Lipase 199 (23-300) U/L Urine Color Yellow Urine Appearance Clear Urine pH 5.0 (4.5-8.0) Ur Specific [place] 1.010 (1.000-1.035) Urine Protein Negative (Negative) Urine Glucose (UA) Negative (Negative) g/dL Urine Ketones 1+ H (NEGATIVE) Urine Occult Blood Trace-lysed (Negative) Urine Nitrate Negative (Negative) Urine Bilirubin Negative (NEGATIVE) Urine Urobilinogen 0.2 (0.2) E.U./dL Ur Leukocyte Esterase Negative (NEGATIVE) Urine RBC 0-1/hpf (0-5/HPF) Urine WBC 0-1/hpf (0-5/HPF) Ur Squamous Epith Cells 0-1 /hpf (0-5/HPF) Urine Bacteria None seen (None) Ur Culture Indicated? Cult not indicated Imaging Data CT scan - abdomen: Radiologist's impression: CT Scan Report Signed Patient: Buddy Maloney [facility]#: [id number] : 1Acct:[id number] Age/Sex: 67 / MDate of Service: 10/23/18 Loc: ED Accession Number: [id number] Procedure: CT abdomen pelvis w con Ordering Provider: Eliz Brothers MD PROCEDURE: CT ABDOMEN PELVIS W CON INDICATIONS: L abd pain TECHNIQUE: After the administration of intravenous contrast, 5 mm thick sections acquired from the diaphragm to the symphysis. 5 mm coronal and sagittal reformats were acquired. For radiation dose reduction, the following was used: automated exposure control, adjustment of mA and/or kV according to patient size. COMPARISON: [facility], CT, ABDOMEN/PELVIS WITH CONTRAST, 11/23/2009, 11:06. FINDINGS: Image quality: Excellent. ABDOMEN: Lung bases: Lung bases are clear. Heart size is normal. Solid organs: Liver is normal in size and enhancement. Gallbladder is unremarkable. Biliary system is non dilated. Pancreas enhances normally. Spleen is normal in size and enhancement. No adrenal nodules. Kidneys demonstrate normal size and enhancement, without hydronephrosis. Peritoneum and bowel: Bowel loops demonstrate normal wall thickness and caliber. No free fluid or air. Appendix is unremarkable. Colonic diverticula are present without associated inflammatory change. Nodes and vessels: No retroperitoneal or mesenteric adenopathy by size criteria. Aorta and inferior vena cava are normal in size. Miscellaneous: Supraumbilical fat containing ventral hernia is present with rectus diastases measuring 26 mm. Umbilical fat containing ventral hernias present with diastases of 20 mm. PELVIS: Genitourinary: Bladder wall thickness is normal. Prostate gland is enlarged with areas of exophytic nodularity along the anterior aspect extending to the bladder. This is more prominent when compared to prior exam. Miscellaneous: No inguinal hernias or adenopathy. Bones: Sclerotic changes are present within the posterior iliac bones bilaterally, minimally more prominent when compared to prior exam. Pars defect is noted at L5. No vertebral body compression fractures. IMPRESSION: 1. Diverticulosis. 2. Enlarged prostate with areas of exophytic nodularity increased in prominence compared to 2010. Correlation PSA levels as prostate neoplasm cannot be excluded. 3. Persistent appearance of sclerosis within the iliac bones slightly more prominent when compared to prior exam. Dictated by: Giselle May M.D. on 10/23/2018 at 19:21 Approved by: Giselle May M.D. on 10/23/2018 at 19:26 MDM Narrative Medical decision making narrative: Received turned over from day provider. Reviewed patient's history and physical. Performed my own independent history and physical exam. CT scan returns with no signs of acute pathology. The comparison CT scan from 2009 was prior to his diagnosis of prostate cancer. The enlargement of the prostate noted on today's exam has been followed by his oncologist at the [facility]. He states he just had an appoint ment within the past 60 days with a PSA which he states was lower than what it has been in the past. He has good follow-up with regarding his prostate cancer. I have no signs of infection to account for his fever. He has no skin changes concerning for cellulitis. Has not had upper respiratory like symptoms. Lungs were clear no cough. No indication for antibiotics. I did go over his CT resul ts with him. Will hold on further workup for now. He will contact his primary doctor for follow-up. We discussed strict return precautions. Both he and his who is at bedside expressed understanding and agreement with plan. Discharge Plan Departure Patient Disposition: Home Clinical Impression: Abdominal distension Fever Qualifiers: Fever type: unspecified Qualified Code(s): R50.9 - Fever, unspecified Discharge Date/Time: 10/23/18 20:13 Interventions: ED Discharge Assessment Last Done: 10/23/18 20:13 Activity Restrictions/Additional Instructions: Recommend that you start taking 150 mg of Zantac 2 times a day. You can buy this [id number] and can buy the generic version of this medication. Take it for the next week until your appointment with your primary doctor. Continue all of your follow-up appointments with your prostate doctor. Return to the emergency department for any new or worsening symptoms Prescriptions: No Action [FISH OIL] Q DAY Qty: 0 RF: 0 [GLUCOSAMINE/CHOND] PO Q DAY Qty: 0 RF: 0 atorvastatin 10 mg tablet 1 tab PO DAILY RF: 0 lisinopril-hydrochlorothiazide 20-12.5 mg tablet 1 tab PO DAILY RF: 0 Referrals: Honey Shahid PA-C [Primary Care Provider] -
[2018-10-23] MEDS: SODIUM CHLORIDE 0.9% 1,000 ML 1000 ML IV (17:46)
[2018-10-23] MEDS: PANTOPRAZOLE 40 MG VIAL IV (17:46)
--- NOTE | 2018-10-23 17:51 | PC.NURSE ---
abdominal preassure for 2 weeks, with low fever at home, denies vomiting or diarrhea, had normal bm today, denies traveling, antibiotic treatment recently. also with altered with taste, burping alot. denies uti sxs.
--- NOTE | 2018-10-23 17:56 | PC.NURSE ---
reports, hx of colectomy twice, umbilical hernia repair, prostate cancer.
[2018-10-23 18:05] LABS: Alanine Aminotransferase 15 IU/L (21-72); Albumin 4.6 g/dL (3.5-5.0); Albumin Globulin Ratio 1.4 (1.0-2.8); Alkaline Phosphatase 49 U/L (38-126); Aspartate Aminotransferase 22 IU/L (17-59); BUN Creatinine Ratio 21.1 (6-22); Blood Urea Nitrogen 19 mg/dL (9-20); Calcium 9.7 mg/dL (8.4-10.2); Carbon Dioxide 27 mmol/L (22-32); Chloride 97 mmol/L (98-107); Estimated Glomerular Filt Rate > 60.0 mL/min (>60); Globulin 3.4 g/dL (1.7-4.1); Glucose 86 mg/dL (80-110); HEMOLYSIS 42 (0-50); Lipase 199 U/L (23-300); Potassium 3.7 mmol/L (3.4-5.1); Sodium 137 mmol/L (137-145)
[2018-10-23 18:07] LABS: Add Manual Diff / Slide Review NO; Basophils Absolute Auto 100 /uL (0-100); Basophils Percent Auto 0.7 % (0-2); Eosinophils Absolute Auto 100 /uL (0-450); Eosinophils Percent Auto 0.9 % (2-4); Lymphocytes Absolute Auto 2000 /uL (1100-4500); Lymphocytes Percent Auto 21.1 % (25-40); Mean Corpuscular HGB Conc 33.9 % (30-36); Mean Corpuscular Hemoglobin 29.4 PG (26-34); Mean Corpuscular Volume 86.6 fL (80-100); Monocytes Absolute Auto 800 /uL (0-900); Monocytes Percent Auto 8.5 % (3-14); Neutrophils Absolute Auto 6400 /uL (1500-7000); Neutrophils Percent Auto 68.8 % (50-75); Platelet Count 321 X10^3/uL (150-400); Red Blood Cell Count 5.77 X10^6/uL (4.5-5.9); Red Cell Distribution Width 13.7 % (11.6-14.8); White Blood Cell Count 9.4 X10^3/uL (4.5-11.0)
--- NOTE | 2018-10-23 18:31 | DI.CT.S_ITS ---
PROCEDURE: CT ABDOMEN PELVIS W CON INDICATIONS: L abd pain TECHNIQUE: After the administration of intravenous contrast, 5 mm thick sections acquired from the diaphragm to the symphysis. 5 mm coronal and sagittal reformats were acquired. For radiation dose reduction, the following was used: automated exposure control, adjustment of mA and/or kV according to patient size. COMPARISON: [facility], CT, ABDOMEN/PELVIS WITH CONTRAST, 11/23/2009, 11:06. FINDINGS: Image quality: Excellent. ABDOMEN: Lung bases: Lung bases are clear. Heart size is normal. Solid organs: Liver is normal in size and enhancement. Gallbladder is unremarkable. Biliary system is non dilated. Pancreas enhances normally. Spleen is normal in size and enhancement. No adrenal nodules. Kidneys demonstrate normal size and enhancement, without hydronephrosis. Peritoneum and bowel: Bowel loops demonstrate normal wall thickness and caliber. No free fluid or air. Appendix is unremarkable. Colonic diverticula are present without associated inflammatory change. Nodes and vessels: No retroperitoneal or mesenteric adenopathy by size criteria. Aorta and inferior vena cava are normal in size. Miscellaneous: Supraumbilical fat containing ventral hernia is present with rectus diastases measuring 26 mm. Umbilical fat containing ventral hernias present with diastases of 20 mm. PELVIS: Genitourinary: Bladder wall thickness is normal. Prostate gland is enlarged with areas of exophytic nodularity along the anterior aspect extending to the bladder. This is more prominent when compared to prior exam. Miscellaneous: No inguinal hernias or adenopathy. Bones: Sclerotic changes are present within the posterior iliac bones bilaterally, minimally more prominent when compared to prior exam. Pars defect is noted at L5. No vertebral body compression fractures. IMPRESSION: 1. Diverticulosis. 2. Enlarged prostate with areas of exophytic nodularity increased in prominence compared to 2009. Correlation PSA levels as prostate neoplasm cannot be excluded. 3. Persistent appearance of sclerosis within the iliac bones slightly more prominent when compared to prior exam. Dictated by: Giselle May M.D. on 10/23/2018 at 19:21 Approved by: Giselle May M.D. on 10/23/2018 at 19:26
[2018-10-23 18:43] VITALS: BP 129/70; PULSE 65; RESP 18; O2SAT 100
--- NOTE | 2018-10-23 18:43 | PC.NURSE ---
states, abdominal pain better at this time
--- NOTE | 2018-10-23 19:11 | PC.NURSE ---
Obtained patient care. Patient resting, at bedside. IVF infusing. Awaiting CT results. Urinal at bedside patient aware that we need UA.
[2018-10-23 19:29] LABS: Bacteria Urine None Seen
[2018-10-23 19:31] LABS: Appearance Urine UA CLEAR; Bilirubin Urine UA NEGATIVE (NEGATIVE); Color Urine UA YELLOW; Glucose Urine UA NEGATIVE (Negative); Ketones Urine UA 1+ (NEGATIVE); Leukocyte Esterase Urine UA NEGATIVE (NEGATIVE); Nitrite Urine UA NEGATIVE (Negative); Occult Blood Urine UA TRACE-LYSED (Negative); Protein Urine UA NEGATIVE (Negative); Urobilinogen Urine UA 0.2 E.U./dL (0.2)
[2018-10-23 19:40] LABS: Culture Indicated Urine Cult Not Indicated; RBC Urine 0-1/HPF (0-5/HPF); Squamous Epithelial Cell Urine 0-1 /HPF (0-5/HPF); WBC Urine 0-1/HPF (0-5/HPF)
== END 2018-10-23 20:13 | disposition home or self-care (01) ==
PROVIDERS: Emergency Medicine; Emergency Provider Emergency Medicine; Family Provider Physician Assistant; PCP Physician Assistant
DX: R14.0 Abdominal distension (gaseous) (principal); R50.9 Fever, unspecified
CPT/HCPCS: 36591; 74177; 80053; 81001; 83690; 85025; 96361; 96374; 99283; 99284; C9113; Q9967

== ENCOUNTER → 2018-12-18 08:54 | Outpatient (CLI) | payer MEDICARE, OTHER, SELFPAY ==
--- NOTE | 2018-12-18 | DI.CT.S_ITS ---
PROCEDURE: CT ABDOMEN PELVIS W CON INDICATIONS: ABDOMINAL BLOATING PAIN IN LEFT CALF TECHNIQUE: After the administration of oral and intravenous contrast, 5 mm thick sections acquired from the diaphragms to the symphysis. 5 mm thick coronal and sagittal reformats were performed. For radiation dose reduction, the following was used: automated exposure control, adjustment of mA and/or kV according to patient size. COMPARISON: [facility], CT, CT ABDOMEN PELVIS W CON, 10/23/2018, 18:38. FINDINGS: Image quality: Excellent. ABDOMEN: Lung bases: Lung bases are clear. Heart size is normal. Solid organs: Liver is normal in size and enhancement. Gallbladder is unremarkable. Biliary system is non-dilated. Pancreas enhances normally. Spleen is normal in size and enhancement. No adrenal nodules. Kidneys are normal in size and enhancement, without hydronephrosis. Peritoneum and bowel: Stomach, small bowel, and colon loops are normal in caliber and wall thickness. The appendix is thin walled. There are scattered sigmoid diverticula. No evidence for diverticulitis. No free fluid or air. Nodes and vessels: No retroperitoneal or mesenteric adenopathy. Aorta and inferior vena cava are normal in caliber. There are scattered atheromatous calcifications throughout the aorta and iliac arteries bilaterally. Miscellaneous: There is a 4.3 cm in diameter fat-containing periumbilical hernia and a 2.9 cm fat-containing umbilical hernia. PELVIS: Genitourinary: Bladder wall thickness is normal. The prostate has a heterogeneous, enlarged appearance which produces mass effect on the inferior aspect of the bladder. Miscellaneous: No inguinal hernias or adenopathy. Bones: Posterior iliac sclerotic lesions are redemonstrated, unchanged from the study dated 10/23/18.. There is grade I L5 on S1 anterolisthesis. There are bilateral minimally displaced pars interarticularis defects. No vertebral body compression fractures. IMPRESSION: 1. No acute intra-abdominal findings. Normal appendix. 2. Fat-containing ventral hernias as above. 3. Diverticulosis. No acute diverticulitis. 4. L5-S1 spondylolysis and spondylolisthesis. 5. Enlarged prostate with mass effect on the bladder. Differential considerations include hypertrophy and neoplasm. Dictated by: Fara Nuñez M.D. on 12/18/2018 at 11:06 Approved by: Fara Nuñez M.D. on 12/18/2018 at 11:12
--- NOTE | 2018-12-18 | DI.US.S_ITS ---
PROCEDURE: US PERIP VENOUS LOW EXTREM LT INDICATIONS: PAIN IN LEFT CALF TECHNIQUE: Real-time imaging, as well as color and pulse Doppler interrogation, were performed of the lower extremity deep veins from the inguinal ligament to the popliteal fossa. COMPARISON: [facility], , [facility] VENOUS LOW EXTREM LT, 05/21/2018, 16:15. FINDINGS: The common femoral, femoral and popliteal veins are normally compressible, and free of intraluminal thrombus. Color and pulse Doppler demonstrate normal phasic intraluminal flow. There is normal augmentation response to distal compression maneuver. There is a presumed hematoma at the medial calf, measuring up to 1.7 x 4.4 x 14.6 cm and also a Pagan's cyst at the posterior medial knee measuring 1.3 x 1.4 x 2.5 cm. IMPRESSION: No DVT found. Note is made of a medial lower leg hematoma and air is current clinical concern measuring up to 1.7 x 4.4 cm with a craniocaudad length of 14.6 cm. Incidental note is also made of a Pagan cyst measuring up to 1.3 x 1.4 x 2.5 cm at the medial popliteal fossa. Dictated by: Jose Roberto Choi M.D. on 12/18/2018 at 11:58 Approved by: Jose Roberto Choi M.D. on 12/18/2018 at 12:02
[2018-12-18 09:36] LABS: Appearance Urine UA CLEAR; Bilirubin Urine UA NEGATIVE (NEGATIVE); Color Urine UA YELLOW; Glucose Urine UA NEGATIVE (Negative); Ketones Urine UA NEGATIVE (NEGATIVE); Leukocyte Esterase Urine UA NEGATIVE (NEGATIVE); Nitrite Urine UA NEGATIVE (Negative); Occult Blood Urine UA TRACE-LYSED (Negative); Protein Urine UA NEGATIVE (Negative); Specific Gravity Urine UA 1.015 (1.000-1.035); Urobilinogen Urine UA 0.2 E.U./dL (0.2); pH Urine UA 7.5 (4.5-8.0)
[2018-12-18 10:15] LABS: Bacteria Urine Moderate (10-30); Mucus Urine 2+ (Negative); RBC Urine 1-5/HPF (0-5/HPF); Squamous Epithelial Cell Urine 0-1 /HPF (0-5/HPF); WBC Urine 0-1/HPF (0-5/HPF)
[2018-12-18 10:16] LABS: Culture Indicated Urine Cult Not Indicated
[2018-12-18 10:21] LABS: Hematocrit 49.3 % (41-53); Mean Corpuscular HGB Conc 34.4 % (30-36); Mean Corpuscular Hemoglobin 29.5 PG (26-34); Mean Corpuscular Volume 85.8 fL (80-100); Platelet Count 168 X10^3/uL (150-400); Red Blood Cell Count 5.74 X10^6/uL (4.5-5.9); Red Cell Distribution Width 13.7 % (11.6-14.8); White Blood Cell Count 3.3 X10^3/uL (4.5-11.0)
[2018-12-18 10:25] LABS: Alanine Aminotransferase 34 IU/L (21-72); Albumin 4.2 g/dL (3.5-5.0); Albumin Globulin Ratio 1.3 (1.0-2.8); Alkaline Phosphatase 46 U/L (38-126); Amylase 75 U/L (30-110); Aspartate Aminotransferase 35 IU/L (17-59); Bilirubin Total 0.7 mg/dL (0.2-1.3); Blood Urea Nitrogen 13 mg/dL (9-20); Calcium 9.2 mg/dL (8.4-10.2); Carbon Dioxide 32 mmol/L (22-32); Chloride 98 mmol/L (98-107); Estimated Glomerular Filt Rate > 60.0 mL/min (>60); Globulin 3.2 g/dL (1.7-4.1); Glucose 93 mg/dL (80-110); HEMOLYSIS < 15 (0-50); Lipase 171 U/L (23-300); Potassium 3.7 mmol/L (3.4-5.1); Sodium 140 mmol/L (137-145); Total Protein 7.4 g/dL (6.3-8.2)
[2018-12-18 10:29] LABS: C-Reactive Protein Quant < 0.5 mg/dL (<1.0)
[2018-12-18 10:33] LABS: Erythrocyte Sedimentation Rate 1 MM/HR (0-15)
[2018-12-18 10:43] LABS: D Dimer 417 ng/mL (<230)
[2018-12-18 11:47] LABS: Neutrophils Absolute Manual 1749 /uL (3000-5900); Total Cells Counted 100
[2018-12-18 11:55] LABS: RBC Morphology Normal Morphology
== END ==
PROVIDERS: PCP Internal Medicine; Visit Provider Internal Medicine
DX: R14.0 Abdominal distension (gaseous) (principal); M79.662 Pain in left lower leg; R50.9 Fever, unspecified; T14.8XXA Other injury of unspecified body region, initial encounter; M71.22 Synovial cyst of popliteal space [Baker], left knee; K43.9 Ventral hernia without obstruction or gangrene; N40.0 Benign prostatic hyperplasia without lower urinary tract symptoms; M43.17 Spondylolisthesis, lumbosacral region; M47.817 Spondylosis without myelopathy or radiculopathy, lumbosacral region; K57.90 Diverticulosis of intestine, part unspecified, without perforation or abscess without bleeding
CPT/HCPCS: 36415; 74177; 80053; 81001; 82150; 83690; 85025; 85379; 85651; 86140; 93971; Q9967

== ENCOUNTER → 2020-01-29 08:30 | Outpatient (CLI) | payer MEDICARE, OTHER, SELFPAY ==
[2020-01-29 10:00] LABS: Alanine Aminotransferase 21 IU/L (<50); Albumin Globulin Ratio 1.3 (1.0-2.8); Alkaline Phosphatase 52 U/L (38-126); Aspartate Aminotransferase 31 IU/L (17-59); BUN Creatinine Ratio 20.4 (6-22); Bilirubin Total 0.8 mg/dL (0.2-1.3); Blood Urea Nitrogen 20 mg/dL (9-20); Calcium 9.5 mg/dL (8.4-10.2); Carbon Dioxide 31 mmol/L (22-32); Chloride 102 mmol/L (98-107); Cholesterol 148 mg/dL (140-199); Estimated Glomerular Filt Rate > 60.0 mL/min (>60); Glucose 92 mg/dL (80-110); HDL Cholesterol 34 mg/dL (40-60); HEMOLYSIS < 15 (0-50); LDL Cholesterol Calculated 84 mg/dL (<100); Potassium 4.5 mmol/L (3.4-5.1); Sodium 138 mmol/L (137-145); Triglycerides 148 mg/dL (35-150)
== END ==
PROVIDERS: PCP Internal Medicine; Referring Provider Surgery; Visit Provider Surgery
DX: I10 Essential (primary) hypertension (principal); E78.5 Hyperlipidemia, unspecified
CPT/HCPCS: 36415; 80053; 80061

== ENCOUNTER → 2020-08-04 08:29 | Outpatient (CLI) | payer MEDICARE, OTHER, SELFPAY ==
[2020-08-04 10:47] LABS: Alanine Aminotransferase 22 IU/L (<50); Albumin 3.9 g/dL (3.5-5.0); Albumin Globulin Ratio 1.3 (1.0-2.8); Alkaline Phosphatase 52 U/L (38-126); Aspartate Aminotransferase 34 IU/L (17-59); BUN Creatinine Ratio 18.8 (6-22); Bilirubin Total 0.6 mg/dL (0.2-1.3); Blood Urea Nitrogen 19 mg/dL (9-20); Calcium 9.2 mg/dL (8.4-10.2); Carbon Dioxide 31 mmol/L (22-32); Chloride 103 mmol/L (98-107); Cholesterol 150 mg/dL (140-199); Estimated Glomerular Filt Rate > 60.0 mL/min (>60); Glucose 91 mg/dL (80-110); HDL Cholesterol 31 mg/dL (40-60); HEMOLYSIS < 15 (0-50); LDL Cholesterol Calculated 100 mg/dL (<100); Sodium 138 mmol/L (137-145); Total Protein 6.9 g/dL (6.3-8.2); Triglycerides 93 mg/dL (35-150)
== END ==
PROVIDERS: PCP Internal Medicine; Referring Provider Internal Medicine; Visit Provider Internal Medicine
DX: I10 Essential (primary) hypertension (principal)
CPT/HCPCS: 36415; 80053; 80061

== ENCOUNTER 2022-11-13 05:34 | Emergency (ER) | payer MEDICARE, OTHER, SELFPAY ==
--- NOTE | 2022-11-13 05:42 | ED.GENADULT ---
HPI - General Adult General Chief complaint: Urogenital-Male Stated complaint: can't urinate Time Seen by Provider: 11/13/22 05:38 Source: patient Mode of arrival: Ambulatory Limitations: no limitations History of Present Illness HPI narrative: Patient is a 71-year-old male. Does have history an enlarged prostate. Has on tamsulosin for this. He states that overnight he has had the urgency to go to the bathroom. He states he feels like he has to push very hard in order to get any sort of urine to come out. He reports no fevers. No problems with bowel movements. He feels like he is not emptying his bladder. He is also having quite a bit of lower abdominal pain. Related Data Home Medications Medication Instructions Recorded Confirmed [FISH OIL] Q DAY ##0 12/20/09 [GLUCOSAMINE/CHOND] PO Q DAY ##0 12/20/09 atorvastatin 10 mg tablet 1 tab PO DAILY 03/25/18 10/23/18 lisinopril 20 1 tab PO DAILY 03/25/18 03/25/18 mg-hydrochlorothiazide 12.5 mg tablet Allergies Allergy/AdvReac Type Severity Reaction Status Date / Time No Known Drug Allergies Allergy Verified 03/25/18 10:43 Review of Systems Constitutional Constitutional: Reports system reviewed and no additional complaints, except as documented Gastrointestinal Gastrointestinal: Reports system reviewed and no additional complaints, except as documented Genitourinary Genitourinary: Reports system reviewed and no additional complaints, except as documented Integumentary/Breasts Skin/Breast: Reports system reviewed and no additional complaints, except as documented Patient History Medical History (Updated 11/13/22 @ 06:28 by Mario Alberto Marin DO) Prostate CA Surgical History History of total left knee replacement Social History Smoking Status: Never smoker Smoking Status: Never smoker alcohol intake frequency: holidays/special occasions only Substance Use Type: does not use Exam Initial Vital Signs Initial Vital Signs: Vital Signs Temperature 97.6 F 11/13/22 05:46 Pulse Rate 64 11/13/22 05:46 Respiratory Rate 18 11/13/22 05:46 Blood Pressure 164/77 H 11/13/22 05:46 Pulse Oximetry 96 11/13/22 05:46 Oxygen Delivery Method Room Air 11/13/22 05:46 Const General: cooperative and comfortable HENMT Head: normal to inspection and normocephalic Resp Effort & Inspection: normal respiratory effort Cardio Rate: regular rate GI Inspection: normal to inspection and non-distended Palpation: soft and tender (Lower abdomen) Neuro General: patient alert, patient awake and moves all extremities Extrem General: capillary refill normal Course Orders Ordered: Discontinued Medications Lidocaine HCl (Lidocaine 2% (Glydo) 6 Ml Gel) 6 ml TOP NOW ONE Stop: 11/13/22 05:56 Last Admin: 11/13/22 06:04 Dose: 6 ml Documented By: MEDARDO Vital Signs Vital signs: Vital Signs - 8 hr 11/13/22 05:46 Temperature 97.6 F Pulse Rate 64 Respiratory Rate 18 Blood Pressure 164/77 H Pulse Oximetry 96 Oxygen Delivery Method Room Air Medical Decision Making Lab Data Lab results reviewed: Yes I reviewed the patient's lab results. Labs: Urine Dip Bedside Urine Glucose Negative Bedside Urine Bilirubin - Negative Bedside Urine Ketone - Negative Urine Specific [place] 1.015 Bedside Urine Occult Blood - Negative Bedside Urine pH 6.0 Bedside Urine Protein - Negative Bedside Urine Urobilinogen - Negative Bedside Urine Nitrite - Negative Bedside Urine Leukocytes - Negative Esterase Point of care testing: Urine Dip Bedside Urine Glucose Negative Bedside Urine Bilirubin - Negative Bedside Urine Ketone - Negative Urine Specific [place] 1.015 Bedside Urine Occult Blood - Negative Bedside Urine pH 6.0 Bedside Urine Protein - Negative Bedside Urine Urobilinogen - Negative Bedside Urine Nitrite - Negative Bedside Urine Leukocytes - Negative Esterase MDM Narrative Medical decision making narrative: Initial bladder scan only showed approximately 200 cc of urine however he was having symptoms that were very consistent with urinary retention. We did discuss the risks and benefits of placing a urinary catheter and after this we decided to place it. Had a return of approximately 600 cc of urine. His urinalysis is not consistent with an infection. He would a tremendous improvement of symptoms after the placement of the catheter. Had a long discussion with him regarding this. We will leave the catheter in place. He does have a urologist that he sees in [place] because of his prostate cancer history. Advised that he contact that urologist for follow-up however he was also given contact information for local urologist as well. He was given return precautions. He expressed understanding and agreement. Discharge Plan Departure Patient Disposition: Home Clinical Impression: Acute retention of urine Instructions: How to Care for Your Bella Catheter -- Male, DI for Urinary Retention in Men Activity Restrictions/Additional Instructions: I do recommend that you continue to take all of your medications as directed also recommend that you contact your urologist for a follow-up. Return to the emergency department for new or worsening symptoms. Prescriptions: No Action [FISH OIL] Q DAY Qty: 0 [GLUCOSAMINE/CHOND] PO Q DAY Qty: 0 atorvastatin 10 mg tablet 1 tab PO DAILY lisinopril-hydrochlorothiazide 20-12.5 mg tablet 1 tab PO DAILY Referrals: Marianela Duarte MD [Physician] - Stand Alone Forms: Patient Portal/API
[2022-11-13 05:46] VITALS: BP 164/77; PULSE 64; RESP 18; TEMP 36.4; O2SAT 96; BMI 33.7
[2022-11-13] MEDS: LIDOCAINE 2% (GLYDO) 6 ML GEL TOP (06:04)
--- NOTE | 2022-11-13 06:37 | PC.NURSE ---
north bag changed to leg bag with instructions given to pt, with understanding verblaized
== END 2022-11-13 06:38 | disposition home or self-care (01) ==
PROVIDERS: Emergency Provider Emergency Medicine
DX: R33.9 Retention of urine, unspecified (principal)
CPT/HCPCS: 51798; 81003

== ENCOUNTER 2022-11-13 18:40 | Emergency (ER) | payer MEDICARE, OTHER, SELFPAY ==
[2022-11-13 19:07] VITALS: BP 123/65; PULSE 86; RESP 18; TEMP 36.8; O2SAT 98; BMI 34.4
--- NOTE | 2022-11-13 22:02 | ED.GENADULT ---
HPI - General Adult General Chief complaint: Urogenital-Male Stated complaint: bladder issues blood in cath, painful Time Seen by Provider: 11/13/22 19:24 Source: patient Mode of arrival: Ambulatory History of Present Illness HPI narrative: 71-year-old male who I evaluated in the emergency department during my last shift for acute urinary retention. A Bella catheter was placed. He was discharged home. He was able to contact his urologist and he has an appointment scheduled on Saturday of this week. He states that since he was discharged he is noticed quite a bit of blood coming from the Bella catheter. He states he is having some discomfort. It is still draining. He is unsure whether not he is completely emptying his bladder. Related Data Home Medications Medication Instructions Recorded Confirmed [FISH OIL] Q DAY ##0 12/20/09 [GLUCOSAMINE/CHOND] PO Q DAY ##0 12/20/09 atorvastatin 10 mg tablet 1 tab PO DAILY 03/25/18 10/23/18 lisinopril 20 1 tab PO DAILY 03/25/18 03/25/18 mg-hydrochlorothiazide 12.5 mg tablet Allergies Allergy/AdvReac Type Severity Reaction Status Date / Time No Known Drug Allergies Allergy Verified 03/25/18 10:43 Review of Systems Constitutional Constitutional: Reports system reviewed and no additional complaints, except as documented Genitourinary Genitourinary: Reports system reviewed and no additional complaints, except as documented Patient History Medical History Prostate CA Surgical History History of total left knee replacement Social History Smoking Status: Never smoker Smoking Status: Never smoker alcohol intake frequency: holidays/special occasions only Substance Use Type: does not use Exam Initial Vital Signs Initial Vital Signs: Vital Signs Temperature 98.3 F 11/13/22 19:07 Pulse Rate 86 11/13/22 19:07 Respiratory Rate 18 11/13/22 19:07 Blood Pressure 123/65 11/13/22 19:07 Pulse Oximetry 98 11/13/22 19:07 Oxygen Delivery Method Room Air 11/13/22 19:07 GI Inspection: non-distended Other: Blood clots noted in the collection bag from the Bella catheter. Course Vital Signs Vital signs: Vital Signs - 8 hr 11/14/22 00:34 Temperature 97.8 F Pulse Rate 78 Respiratory Rate 16 Blood Pressure 125/72 Pulse Oximetry 97 Oxygen Delivery Method Room Air Medical Decision Making MDM Narrative Medical decision making narrative: Patient did have blood-tinged urine in his Bella catheter bag along with blood clots. We attempted to flush the catheter and we were unable to do so. The catheter was removed and a 3 way catheter was placed and he was irrigated until clear. He then produced pink tinged urine. Patient was discharged home with instructions to continue to keep it with the appointment on Saturday. Increase his fluid intake. There is no indication for antibiotics. I suspect that his urinary retention is related to prostate. He was given return precautions. He expressed understanding and agreement. Discharge Plan Departure Patient Disposition: Home Clinical Impression: Hematuria Instructions: DI for Hematuria Activity Restrictions/Additional Instructions: Be sure that you were increasing your fluid intake. Keep your scheduled appointment on Saturday with your urologist. Return to the emergency department for new or worsening symptoms like we discussed. Prescriptions: No Action [FISH OIL] Q DAY Qty: 0 [GLUCOSAMINE/CHOND] PO Q DAY Qty: 0 atorvastatin 10 mg tablet 1 tab PO DAILY lisinopril-hydrochlorothiazide 20-12.5 mg tablet 1 tab PO DAILY Stand Alone Forms: Patient Portal/API
[2022-11-14 00:34] VITALS: BP 125/72; PULSE 78; RESP 16; TEMP 36.6; O2SAT 97
== END 2022-11-14 00:37 | disposition home or self-care (01) ==
PROVIDERS: Emergency Provider Emergency Medicine
DX: R31.9 Hematuria, unspecified (principal); N48.89 Other specified disorders of penis
CPT/HCPCS: 51700; 51702; 51798; 81003; 99282; 99283; 99284

== ENCOUNTER 2022-11-14 21:46 | Emergency (ER) | payer MEDICARE, OTHER, SELFPAY ==
[2022-11-14 22:02] VITALS: BP 130/69; PULSE 82; RESP 18; TEMP 37.2; O2SAT 93; BMI 34.4
--- NOTE | 2022-11-14 22:05 | ED.GENADULT ---
HPI - General Adult General Chief complaint: Urogenital-Male Stated complaint: uninary cath is plugged, pain Time Seen by Provider: 11/14/22 21:47 Source: patient Mode of arrival: Ambulatory Limitations: no limitations History of Present Illness HPI narrative: 71-year-old male. This is his 3rd visit here in the emergency department with the past couple days. The 1st 1 was for acute urinary retention where urinary catheter was placed. He was seen yesterday because of hematuria and decreased flow from the catheter. The original catheter was replaced with a 3 way catheter and he was flushed and then was discharged home. He states he is back again today as he feels like the catheter is no longer draining again. There has been some blood in the urine as well. He also states he feels like he is leaking around the Bella catheter. Related Data Home Medications Medication Instructions Recorded Confirmed [FISH OIL] Q DAY ##0 12/20/09 [GLUCOSAMINE/CHOND] PO Q DAY ##0 12/20/09 atorvastatin 10 mg tablet 1 tab PO DAILY 03/25/18 10/23/18 lisinopril 20 1 tab PO DAILY 03/25/18 03/25/18 mg-hydrochlorothiazide 12.5 mg tablet Allergies Allergy/AdvReac Type Severity Reaction Status Date / Time ciprofloxacin [From Cipro] Allergy Verified 11/14/22 22:09 Review of Systems Genitourinary Genitourinary: Reports system reviewed and no additional complaints, except as documented Musculoskeletal Comments: No back pain Integumentary/Breasts Skin/Breast: Reports system reviewed and no additional complaints, except as documented Hematologic/Lymphatic On Anticoagulants: No Patient History Medical History Prostate CA Surgical History History of total left knee replacement Social History Smoking Status: Never smoker Smoking Status: Never smoker alcohol intake frequency: holidays/special occasions only Substance Use Type: does not use Exam Initial Vital Signs Initial Vital Signs: Vital Signs Temperature 98.9 F 11/14/22 22:02 Pulse Rate 82 11/14/22 22:02 Respiratory Rate 18 11/14/22 22:02 Blood Pressure 130/69 11/14/22 22:02 Pulse Oximetry 93 11/14/22 22:02 Oxygen Delivery Method Room Air 11/14/22 22:02 GI Other: Normal external male genitalia Skin General: no rashes or lesions noted Neuro General: patient alert, patient awake and moves all extremities Course Vital Signs Vital signs: Vital Signs - 8 hr 11/14/22 22:02 11/14/22 23:20 Temperature 98.9 F Pulse Rate 82 69 Respiratory Rate 18 18 Blood Pressure 130/69 121/70 Pulse Oximetry 93 94 Oxygen Delivery Method Room Air Room Air Medical Decision Making MDM Narrative Medical decision making narrative: He did have some pink-colored urine from the catheter but he also seem to be leaking around the catheter. Who were able to flush the catheter with only a very small amount of clot return. Afterwards he was draining clear urine. He states he feels like he is not retaining urine. Given the fact that he is had issues over the past couple days we discussed the possibility of completely removing the catheter today. He does have a follow-up with his urologist tomorrow. We discussed the risks and benefits of leaving the catheter in versus removing it. After this discussion the decision was made to leave the catheter in. He once again was given return precautions and follow-up instructions. He expressed understanding and agreement. Discharge Plan Departure Patient Disposition: Home Clinical Impression: Hematuria, Complication, blocked Bella catheter Activity Restrictions/Additional Instructions: I recommend that you keep your scheduled appointment with your urologist. Continue to increase your fluid intake. Return to the emergency department for new or worsening symptoms. Prescriptions: No Action [FISH OIL] Q DAY Qty: 0 [GLUCOSAMINE/CHOND] PO Q DAY Qty: 0 atorvastatin 10 mg tablet 1 tab PO DAILY lisinopril-hydrochlorothiazide 20-12.5 mg tablet 1 tab PO DAILY Referrals: Anny Navarro MD [Primary Care Provider] - Stand Alone Forms: Patient Portal/API
[2022-11-14 23:20] VITALS: BP 121/70; PULSE 69; RESP 18; O2SAT 94
--- NOTE | 2022-11-14 23:21 | PC.NURSE ---
This nurse and RN flushed the patient's north catheter with a total of 500ml NS. There were small clots present. Dr. Marin notified. Leg bag removed and large drainage bag applied, north now draining with now clots. patient denies pain.
== END 2022-11-14 23:27 | disposition home or self-care (01) ==
PROVIDERS: Emergency Provider Emergency Medicine; PCP Internal Medicine
DX: T83.091A Other mechanical complication of indwelling urethral catheter, initial encounter (principal); R31.9 Hematuria, unspecified
CPT/HCPCS: 99281

== ENCOUNTER 2024-10-07 06:24 | Emergency (ER) | payer MEDICARE, OTHER, SELFPAY ==
--- NOTE | 2024-10-07 06:25 | ED.MALEGU ---
HPI - Male Genitourinary General Chief complaint: Urogenital-Male Stated complaint: unable to urinate x2 days Time Seen by Provider: 10/07/24 06:24 History of Present Illness HPI Narrative: 73-year-old male with past medical history of hypertension hyperlipidemia comes into the ED for evaluation of urinary retention, he states that he has a history of urinary retention last time he required a Bella catheter was a few years ago, does follow up with Dr. Sen of Urology. He states that he has had decreased urinary output over the past 2 days, states that he has to strain very hard just to get a few dribbles, he states that he did attempt to see his urologist yesterday, however he states that he was not able to be physically seen, he was told by the urology team to continue his Flomax, he presents to the emergency department due to persistent symptoms, he denies any other symptoms at this time. Related Data Home Medications Medication Instructions Recorded Confirmed [FISH OIL] Q DAY ##0 12/20/09 [GLUCOSAMINE/CHOND] PO Q DAY ##0 12/20/09 atorvastatin 10 mg tablet 1 tab PO DAILY 03/25/18 10/23/18 lisinopril 20 1 tab PO DAILY 03/25/18 03/25/18 mg-hydrochlorothiazide 12.5 mg tablet Allergies Allergy/AdvReac Type Severity Reaction Status Date / Time ciprofloxacin [From Cipro] Allergy Verified 11/14/22 22:09 Review of Systems Review of Systems Narrative: General: Denies fever, chills, weight loss HEENT: Denies headache, eye drainage, eye irritation, head trauma, sore throat, voice change Cardiovascular: Denies any chest pain, palpitations, tachycardia Respiratory: Denies any shortness of breath, cough, wheeze, stridor GI/: Positive urinary retention, Denies any abdominal pain, nausea, vomiting, diarrhea, bright red blood per rectum, melanotic stools, urinary frequency, dysuria, hematuria MSK: Denies any joint pain, muscle pains, swelling Skin: Denies any rashes, lesions, discoloration Neuro: Denies any headache, lightheadedness, dizziness, fainting, weakness Psych: Denies SI/HI Patient History Medical History (Updated 10/07/24 @ 06:35 by Adrian Herring DO) Prostate CA Surgical History History of total left knee replacement alcohol intake frequency: holidays/special occasions only Exam Narrative Exam Narrative: General: Cooperative, well-developed, not in acute distress HEENT: Normocephalic, atraumatic, PERRLA, normal sclera, eyelids normal Neck: Active full range of motion, atraumatic Chest: Normal to inspection, negative crepitus, no overlying erythema ecchymosis Respiratory: Normal respiratory effort, not in acute respiratory distress, clear to auscultation bilaterally negative cough, wheeze, tachypnea, rhonchi, rales Cardiology: Regular rate rhythm negative gallop, murmur, rubs GI/: Mild tenderness to palpation of the suprapubic region, soft, non rigid, normal to inspection, exam deferred MSK: Full active range of motion in all 4 extremities, atraumatic, no tenderness to palpation of any bony prominences Skin: No rashes or lesions noted Neuro: Alert awake oriented x3, moves all 4 extremities spontaneously, cranial nerves intact, able to answer all questions appropriately follows commands appropriately Psych: Cooperative, negative suicidal or homicidal ideations Initial Vital Signs Initial Vital Signs: Vital Signs Temperature 97.8 F 10/07/24 06:33 Pulse Rate 63 10/07/24 06:33 Respiratory Rate 16 10/07/24 06:33 Blood Pressure 158/84 H 10/07/24 06:33 Pulse Oximetry 94 10/07/24 06:33 Oxygen Delivery Method Room Air 10/07/24 06:33 Course Orders Ordered: ED Orders 10/07/24 06:30 BMP [Basic Metabolic Panel] Stat CBC Auto Diff [Complete Blood Count AUTO DIFF] Stat Urinalysis and Microscopic Stat Discontinued Medications Lidocaine HCl (Lidocaine 2% (Glydo) 6 Ml Gel) 6 ml TOP NOW ONE Stop: 10/07/24 06:36 Last Admin: 10/07/24 06:50 Dose: 6 ml Vital Signs Vital signs: Vital Signs - 8 hr 10/07/24 06:33 Temperature 97.8 F Pulse Rate 63 Respiratory Rate 16 Blood Pressure 158/84 H Pulse Oximetry 94 Oxygen Delivery Method Room Air MDM - Male Genitourinary Differential Diagnosis Differential diagnosis: Likely urinary tract infection and other (Acute urinary retention) Lab Data 10/07/24 06:30 10/07/24 06:30 Labs: Lab Results 10/07/24 Range/Units 06:30 WBC 8.7 (4.5-11.0) X10^3/uL RBC 5.15 (4.5-5.9) X10^6/uL Hgb 15.4 (13.5-17.5) g/dL Hct 45.1 (41-53) % MCV 87.5 (80-100) fL MCH 30.0 (26-34) PG MCHC 34.2 (30-36) % RDW 13.3 (11.6-14.8) % Plt Count 282 (150-400) X10^3/uL Neut % (Auto) 77.3 H (50-75) % Lymph % (Auto) 14.9 L (25-40) % Brooks % (Auto) 6.4 (3-14) % Eos % (Auto) 0.7 L (2-4) % Baso % (Auto) 0.7 (0-2) % Neut # (Auto) 6700 (8214-3702) /uL Lymph # (Auto) 1300 (0583-3811) /uL [place] # (Auto) 600 (0-900) /uL Eos # (Auto) 100 (0-450) /uL Baso # (Auto) 100 (0-100) /uL MDM Narrative Medical decision making narrative: 73-year-old male with a past medical history of hypertension hyperlipidemia presenting for decreased urinary output over the past 2 days, states that he is having to strain significantly just to get a few ?dribbles out states that he has progressively gotten worse with the past 2 days, states he did try to see his urologist yesterday 10/06/2024 Dr. Sen, states that he was too busy to the physically see him but did get in contact with his team and was told to continue to take his Flomax, he presents this morning due to persistent symptoms, patient had bladder scan here with greater than 400cc, Bella catheter placed here in the ED. Lab work was performed to evaluate for kidney function given persistent symptoms. Lab work unremarkable urinalysis not consistent acute urinary tract infection strict return precautions were given, instructed to follow up with urologist in outpatient setting verbalized understanding and agrees to being discharged home with outpatient follow up. Discharge Plan Departure Patient Disposition: Home Clinical Impression: Acute urinary retention Instructions: How to Care for Your Bella Catheter -- Male, DI for Urinary Retention in Men Activity Restrictions/Additional Instructions: Please follow up with your urologist Please read the discharge instructions sheet carefully and bring all papers to all doctor follow-up visits, as it may contain information that your doctor may want to see. Disease processes change and evolve, if your symptoms worsen or if you develop any new symptoms that are concerning to you please return for evaluation. Your evaluation today does not show any evidence of any life-threatening/serious illnesses requiring admission to the hospital or surgery. Please follow-up with your doctor for re-evaluation in approximately 1 day. Seek immediate medical attention for any worrisome symptoms. *If you do not have a primary care provider please contact the [facility] Resource line at [phone]. They will ask some questions about your medical history and help get you set up with a doctor in the community. Prescriptions: No Action [FISH OIL] Q DAY Qty: 0 [GLUCOSAMINE/CHOND] PO Q DAY Qty: 0 atorvastatin 10 mg tablet 1 tab PO DAILY lisinopril-hydrochlorothiazide 20-12.5 mg tablet 1 tab PO DAILY Referrals: Anny Navarro MD [Primary Care Provider] - Stand Alone Forms: Patient Portal/API/Survey
[2024-10-07 06:33] VITALS: BP 158/84; PULSE 63; RESP 16; TEMP 36.6; O2SAT 94; BMI 35.9
[2024-10-07 06:45] LABS: Add Manual Diff / Slide Review NO; Basophils Absolute Auto 100 /uL (0-100); Basophils Percent Auto 0.7 % (0-2); Eosinophils Absolute Auto 100 /uL (0-450); Eosinophils Percent Auto 0.7 % (2-4); Hematocrit 45.1 % (41-53); Hemoglobin 15.4 g/dL (13.5-17.5); Lymphocytes Absolute Auto 1300 /uL (1100-4500); Lymphocytes Percent Auto 14.9 % (25-40); Mean Corpuscular HGB Conc 34.2 % (30-36); Mean Corpuscular Volume 87.5 fL (80-100); Monocytes Absolute Auto 600 /uL (0-900); Monocytes Percent Auto 6.4 % (3-14); Neutrophils Absolute Auto 6700 /uL (1500-7000); Neutrophils Percent Auto 77.3 % (50-75); Platelet Count 282 X10^3/uL (150-400); Red Blood Cell Count 5.15 X10^6/uL (4.5-5.9); Red Cell Distribution Width 13.3 % (11.6-14.8); White Blood Cell Count 8.7 X10^3/uL (4.5-11.0)
[2024-10-07] MEDS: LIDOCAINE 2% (GLYDO) 6 ML GEL TOP (06:50)
[2024-10-07 06:58] LABS: BUN Creatinine Ratio 18.9 (6-22); Blood Urea Nitrogen 18 mg/dL (9-20); Calcium 9.2 mg/dL (8.4-10.2); Carbon Dioxide 27 mmol/L (22-32); Chloride 104 mmol/L (98-107); Estimated Glomerular Filt Rate > 60 mL/min (>60); Glucose 122 mg/dL (70-99); HEMOLYSIS 20 (0-50); Potassium 4.2 mmol/L (3.4-5.1); Sodium 138 mmol/L (137-145)
[2024-10-07 07:03] LABS: Appearance Urine UA CLEAR; Bilirubin Urine UA NEGATIVE (NEGATIVE); Color Urine UA YELLOW; Glucose Urine UA NEGATIVE (Negative); Ketones Urine UA NEGATIVE (NEGATIVE); Leukocyte Esterase Urine UA NEGATIVE (NEGATIVE); Nitrite Urine UA NEGATIVE (Negative); Occult Blood Urine UA 2+ (Negative); Protein Urine UA NEGATIVE (Negative); Specific Gravity Urine UA 1.015 (1.000-1.035); Urobilinogen Urine UA 0.2 E.U./dL (0.2)
[2024-10-07 07:08] LABS: Bacteria Urine None Seen; Culture Indicated Urine Cult Not Indicated; RBC Urine 1-5/HPF (0-5/HPF); Squamous Epithelial Cell Urine None Seen (0-5/HPF); Urine Volume 10mL (spun); WBC Urine None Seen (0-5/HPF)
[2024-10-07 07:17] VITALS: BP 146/80; PULSE 64; O2SAT 95
== END 2024-10-07 07:28 | disposition home or self-care (01) ==
PROVIDERS: Emergency Provider Student in an Organized Health Care Education/Training Program; PCP Internal Medicine
DX: R33.8 Other retention of urine (principal)
CPT/HCPCS: 36415; 80048; 81001; 85025; 99283; 99284

== ENCOUNTER 2024-10-22 20:14 | Emergency (ER) | payer MEDICARE, OTHER, SELFPAY ==
[2024-10-22] VITALS (9 sets, daily range): BP systolic 122–179; BP diastolic 63–84; PULSE 97–112; RESP 17–24; TEMP 37.6–38.3; O2SAT 93–97; BMI 34.4
--- NOTE | 2024-10-22 20:34 | DI.RAD.S_ITS ---
PROCEDURE: XR CHEST 1V INDICATIONS: suspected sepsis TECHNIQUE: One view of the chest was acquired. COMPARISON: [facility], CR, XR CHEST 1V, 03/23/2018, 23:44. FINDINGS: Surgical changes and devices: None. Lungs and pleura: Hazy left basilar opacity. Mediastinum: Mediastinal contours appear normal. Heart size is normal. Bones and chest wall: No suspicious bony lesions. Overlying soft tissues appear unremarkable. IMPRESSION: Hazy left basilar opacity, concerning for early pneumonia. Dictated by: Chris Bernardo M.D. on 10/22/2024 at 21:01 Approved by: Chris Bernardo M.D. on 10/22/2024 at 21:03
[2024-10-22] MEDS: SODIUM CHLORIDE 0.9% 1,000 ML 1000 ML IV (20:57)
--- NOTE | 2024-10-22 21:09 | EKG_ITS ---
[address] [address] Test Date: 2024-10-22 Pat Name: Buddy Maloney Department: [facility] Room: Gender: Male [employer] W[employer]: EMELIA CAMACHO : 1950 Requested By: Order Number: [id number] Reading MD: Adrian Abernathy Measurements Intervals [place] Rate: 94 P: 16 PA: 156 QRS: 2 QRSD: 92 T: 20 QT: 344 QTc: 430 Interpretive Statements Normal sinus rhythm Inferior infarct , age undetermined Electronically Signed On 10-24-2024 16:23:14 PDT by Adrian Abernathy
--- NOTE | 2024-10-22 21:10 | EKG_ITS ---
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
[2024-10-22 21:21] LABS: Add Manual Diff / Slide Review NO; Basophils Absolute Auto 100 /uL (0-100); Basophils Percent Auto 0.6 % (0-2); Eosinophils Absolute Auto 0 /uL (0-450); Eosinophils Percent Auto 0.3 % (2-4); Hemoglobin 15.3 g/dL (13.5-17.5); Lymphocytes Absolute Auto 900 /uL (1100-4500); Lymphocytes Percent Auto 5.2 % (25-40); Mean Corpuscular Hemoglobin 29.4 PG (26-34); Mean Corpuscular Volume 86.7 fL (80-100); Monocytes Absolute Auto 400 /uL (0-900); Monocytes Percent Auto 2.3 % (3-14); Neutrophils Absolute Auto 15000 /uL (1500-7000); Neutrophils Percent Auto 91.6 % (50-75); Platelet Count 274 X10^3/uL (150-400); Red Blood Cell Count 5.19 X10^6/uL (4.5-5.9); Red Cell Distribution Width 13.5 % (11.6-14.8); White Blood Cell Count 16.4 X10^3/uL (4.5-11.0)
[2024-10-22 21:27] LABS: Prothrombin Time 11.5 SECONDS (9.4-12.5)
[2024-10-22 21:30] LABS: PTT Partial Thromboplastin Tim 29 SECONDS (25.1-36.5)
[2024-10-22 21:31] LABS: Alanine Aminotransferase 38 IU/L (<50); Albumin 4.3 g/dL (3.5-5.0); Albumin Globulin Ratio 1.3 (1.0-2.8); Alkaline Phosphatase 67 U/L (38-126); Aspartate Aminotransferase 40 IU/L (17-59); Bilirubin Total 0.5 mg/dL (0.2-1.3); Blood Urea Nitrogen 21 mg/dL (9-20); Calcium 9.1 mg/dL (8.4-10.2); Carbon Dioxide 25 mmol/L (22-32); Chloride 102 mmol/L (98-107); Estimated Glomerular Filt Rate > 60 mL/min (>60); Globulin 3.4 g/dL (1.7-4.1); Glucose 141 mg/dL (70-99); HEMOLYSIS < 15 (0-50); Lipase 170 U/L (23-300); Potassium 3.7 mmol/L (3.4-5.1); Sodium 136 mmol/L (137-145); Total Protein 7.7 g/dL (6.3-8.2)
[2024-10-22 21:32] LABS: Lactate (Lactic Acid) 1.8 mmol/L (0.7-2.1)
[2024-10-22] MEDS: ACETAMINOPHEN 325 MG TABLET 975 MG PO (21:33)
[2024-10-22 21:41] LABS: Bacteria Urine Occasional (0-1); Culture Indicated Urine Cult Not Indicated; RBC Urine 1-5/HPF (0-5/HPF); Squamous Epithelial Cell Urine 0-1 /HPF (0-5/HPF); Urine Volume 10mL (spun); WBC Urine 0-1/HPF (0-5/HPF)
[2024-10-22 21:48] LABS: Procalcitonin 0.053 ng/mL (<0.5)
--- NOTE | 2024-10-22 22:21 | ED.FEVER ---
HPI - Fever General Chief Complaint: Fever Stated Complaint: chills, fever Time Seen by Provider: 10/22/24 21:27 Source: patient and family Mode of arrival: Ambulatory History of Present Illness HPI Narrative: Patient is a male with a history of prostate cancer (currently preparing for prostate radiation, received Lupron injection 5 weeks ago, and had gold markers placed on September 08), recent Bella catheter placement for urinary retention, and diverticulosis/polyps, who presents with acute onset of shaking chills and subjective fever occurring after dinner. The Bella catheter was removed earlier today following a period of two weeks in place, and a post-void scan was reportedly normal. He denies cough, shortness of breath, chest pain, or abdominal pain. He reports mild dysuria since the catheter removal but no other urinary symptoms. No recent sick contacts. Pertinent ROS: Positive for shaking chills, subjective fever, and mild dysuria. Negative for cough, shortness of breath, chest pain, abdominal pain, and recent sick contacts. Past Medical History: Prostate cancer (pending radiation), diverticulosis/polyps. Surgical History: Placement of gold markers for prostate radiation (September 08). Medications: Lupron injection (5 weeks ago). Related Data Home Medications Medication Instructions Recorded Confirmed [FISH OIL] Q DAY ##0 12/20/09 [GLUCOSAMINE/CHOND] PO Q DAY ##0 12/20/09 atorvastatin 10 mg tablet 1 tab PO DAILY 03/25/18 10/23/18 lisinopril 20 1 tab PO DAILY 03/25/18 03/25/18 mg-hydrochlorothiazide 12.5 mg tablet Previous Rx's Medication Instructions Recorded amoxicillin 875 mg-potassium 1 tab PO BID #14 tabs 10/23/24 clavulanate 125 mg tablet azithromycin 250 mg tablet 250 mg PO DAILY 4 days #4 tabs 10/23/24 Allergies Allergy/AdvReac Type Severity Reaction Status Date / Time ciprofloxacin [From Cipro] Allergy Verified 11/14/22 22:09 Patient History Medical History (Updated 10/23/24 @ 00:48 by Heladio Harris MD) Prostate CA Surgical History History of total left knee replacement Social History Smoking Status: Never smoker Smoking Status: Never smoker alcohol intake frequency: holidays/special occasions only Exam Narrative Exam Narrative: General: Alert and conversant. Skin: No rashes on upper extremities or chest, good turgor, no unusual bruising or prominent lesions. Head: Normocephalic, atraumatic. HEENT: Conjunctiva clear, EOM intact, PERRL, mucous membranes moist. Neck: Supple, normal ROM. Heart: Regular rate and rhythm, no murmur or gallop or rubs. Lungs: Clear to auscultation bilaterally. No rales, rhonchi, or wheezes. Abdomen: Soft, non-tender, no distension. Bowel sounds normal. No mass or hernia. Back: Spine normal without deformity or tenderness, no CVA tenderness. Extremities: No significant edema in bilateral lower extremities, no deformities, peripheral pulses intact. Neurologic: CN 2-12 normal. Normal sensation and motor exam. Psychiatric: Oriented X3, normal mood and affect. Initial Vital Signs Initial Vital Signs: Vital Signs Temperature 100.9 F H 10/22/24 20:27 Pulse Rate 112 H 10/22/24 20:27 Respiratory Rate 17 10/22/24 20:27 Blood Pressure 171/84 H 10/22/24 20:27 Pulse Oximetry 97 10/22/24 20:27 Oxygen Delivery Method Room Air 10/22/24 20:27 Course Orders Ordered: ED Orders 10/22/24 20:34 XR chest 1V Stat EKG-12 Lead Stat RT Consult Eval and Treat NOW 10/22/24 20:55 Complete Blood Count AUTO DIFF Stat Comprehensive Metabolic Panel Stat Lactate (Lactic Acid) Stat Lipase Stat PTT Partial Thromboplastin Sean Stat Procalcitonin Stat Prothrombin Time INR Stat 10/22/24 21:02 Urine Microscopic Stat 10/22/24 21:47 Blood Culture Stat Ondansetron HCl (Ondansetron 4 Mg/2 Ml Inj) 4 mg IV NOW PRN PRN Reason: Nausea And Vomiting Ondansetron HCl (Ondansetron 4 Mg Odt) 4 mg PO NOW PRN PRN Reason: Nausea And Vomiting Discontinued Medications Acetaminophen (Acetaminophen 325 Mg Tablet) 975 mg PO NOW ONE Stop: 10/22/24 21:26 Last Admin: 10/22/24 21:33 Dose: 975 mg Documented By: OLENA Amoxicillin/Clavulanate Potassium (Amoxicillin/Clav 875/125 Mg) 1 tab PO NOW ONE Stop: 10/22/24 22:26 Last Admin: 10/22/24 22:45 Dose: 1 tab Documented By: OLENA Azithromycin (Azithromycin 250 Mg Tablet) 500 mg PO NOW ONE Stop: 10/22/24 22:26 Last Admin: 10/22/24 22:45 Dose: 500 mg Documented By: OLENA Sodium Chloride (Normal Saline 0.9%) 1,000 mls @ 1,000 mls/hr IV BOLUS ONE Stop: 10/22/24 21:33 Last Infusion: 10/22/24 22:22 Dose: Infused Documented By: Admin: 10/22/24 20:57 Dose: 1,000 mls/hr Documented By: KIMBERLY Vital Signs Vital signs: Vital Signs - 8 hr 10/22/24 20:27 10/22/24 21:28 10/22/24 21:30 Temperature 100.9 F H Pulse Rate 112 H 101 H 97 H Respiratory Rate 17 24 24 Blood Pressure 171/84 H 179/79 H Pulse Oximetry 97 93 94 Oxygen Delivery Method Room Air 10/22/24 21:36 10/22/24 21:36 10/22/24 22:00 Temperature Pulse Rate 102 H Respiratory Rate 20 Blood Pressure 179/79 H 145/67 H Pulse Oximetry 94 Oxygen Delivery Method 10/22/24 22:00 10/22/24 22:30 10/22/24 22:30 Temperature 99.6 F Pulse Rate 104 H 106 H Respiratory Rate 24 24 Blood Pressure 150/67 H Pulse Oximetry 96 95 Oxygen Delivery Method Room Air Room Air 10/22/24 23:00 10/22/24 23:00 10/22/24 23:30 Temperature Pulse Rate 101 H 98 H Respiratory Rate 24 24 Blood Pressure 133/63 Pulse Oximetry 94 93 Oxygen Delivery Method 10/22/24 23:30 10/22/24 23:44 10/22/24 23:44 Temperature Pulse Rate 103 H Respiratory Rate Blood Pressure 126/64 122/67 Pulse Oximetry 95 Oxygen Delivery Method 10/23/24 00:00 10/23/24 00:00 Temperature Pulse Rate 93 H Respiratory Rate Blood Pressure 131/65 Pulse Oximetry 93 Oxygen Delivery Method MDM - Fever Lab Data Lab results narrative: I reviewed patient's labs which do appear to show elevated white blood cell count at 16.4, hemoglobin within normal limits no signs of thrombocytopenia. Patient's electrolytes and kidney function appeared to be intact without significant abnormalities requiring ED intervention Patient's procalcitonin mildly elevated Patient's urinalysis does not show signs of infection at this time. 10/22/24 20:55 10/22/24 20:55 Labs: Lab Results 10/22/24 10/22/24 Range/Units 20:55 21:02 WBC 16.4 H (4.5-11.0) X10^3/uL RBC 5.19 (4.5-5.9) X10^6/uL Hgb 15.3 (13.5-17.5) g/dL Hct 45.0 (41-53) % MCV 86.7 (80-100) fL MCH 29.4 (26-34) PG MCHC 34.0 (30-36) % RDW 13.5 (11.6-14.8) % Plt Count 274 (150-400) X10^3/uL Neut % (Auto) 91.6 H (50-75) % Lymph % (Auto) 5.2 L (25-40) % [place] % (Auto) 2.3 L (3-14) % Eos % (Auto) 0.3 L (2-4) % Baso % (Auto) 0.6 (0-2) % Neut # (Auto) 42171 H (3426-0463) /uL Lymph # (Auto) 900 L (9363-8331) /uL [place] # (Auto) 400 (0-900) /uL Eos # (Auto) 0 (0-450) /uL Baso # (Auto) 100 (0-100) /uL PT 11.5 (9.4-12.5) SECONDS INR 1.0 (0.9-1.3) APTT 29 (25.1-36.5) SECONDS Sodium 136 L (137-145) mmol/L Potassium 3.7 (3.4-5.1) mmol/L Chloride 102 (98-107) mmol/L Carbon Dioxide 25 (22-32) mmol/L BUN 21 H (9-20) mg/dL Creatinine 1.05 (0.66-1.25) mg/dL Estimated GFR > 60 (>60) mL/min BUN/Creatinine Ratio 20.0 (6-22) Glucose 141 H (70-99) mg/dL Lactate 1.8 (0.7-2.1) mmol/L Calcium 9.1 (8.4-10.2) mg/dL Total Bilirubin 0.5 (0.2-1.3) mg/dL AST 40 (17-59) IU/L ALT 38 (<50) IU/L Alkaline Phosphatase 67 (38-126) U/L Total Protein 7.7 (6.3-8.2) g/dL Albumin 4.3 (3.5-5.0) g/dL Globulin 3.4 (1.7-4.1) g/dL Albumin/Globulin Ratio 1.3 (1.0-2.8) Lipase 170 (23-300) U/L Procalcitonin 0.053 (<0.5) ng/mL Urine RBC 1-5/hpf (0-5/HPF) Urine WBC 0-1/hpf (0-5/HPF) Ur Squamous Epith Cells 0-1 /hpf (0-5/HPF) Urine Bacteria Occasional (0-1) (None) Ur Culture Indicated? Cult not indicated Vol Urine Centrifuged 10ml (spun) Urine Dip Bedside Urine Glucose Negative Bedside Urine Bilirubin - Negative Bedside Urine Ketone - Negative Urine Specific [place] 1.015 Bedside Urine Occult Blood ++ Bedside Urine pH 6.5 Bedside Urine Protein - Negative Bedside Urine Urobilinogen - Negative Bedside Urine Nitrite - Negative Bedside Urine Leukocytes - Negative Esterase Imaging Data Chest x-ray: My Impression: No signs of pneumothorax, widened mediastinum,, mild haziness in bilateral lung coe left greater than right Radiologist's Impression: IMPRESSION: Hazy left basilar opacity, concerning for early pneumonia. MDM Narrative Medical decision making narrative: INITIAL EVALUATION AND PLAN: - Pending blood work and blood cultures - Urinalysis and urine culture - Chest X-ray - Monitor for infectious source (urinary, pulmonary, or other) - Will review results and determine need for further workup or intervention - Patient to return if symptoms worsen or if blood cultures return positive Differential Diagnoses: Urinary Tract Infection, Sepsis, pneumonia, Prostatitis, Pyelonephritis, Catheter-associated bloodstream infection Complexity of Problems Addressed: 1. Patient Factors: The patient presents with shaking chills, subjective fever, and mild dysuria following Bella catheter removal, raising concern for a urinary tract infection or other infectious source. His history of prostate cancer and recent hospitalization for a suspected urinary infection further complicates the clinical picture. 2. Differential Diagnosis: Includes a chronic illness with exacerbation (e.g., recurrent urinary infection) and an undiagnosed new problem with uncertain prognosis (e.g., systemic infection). 3. External Information Sources: Information was gathered from the patient as the primary historian, with no additional external sources or corroborating historians noted. Patient's chest x-ray as documented above show signs of left-sided opacity potentially pneumonia, patient given dose of Augmentin and azithromycin in order to help treat potential pneumonia as the cause of his symptoms. Patient did not have significantly elevated curb 65 score no oxygen required no significant tachycardia, patient's kidney function appears to be intact. Patient given ambulatory trial here without desaturations without significant tachycardia. We discussed pros and cons of admission, decided for outpatient treatment and return to the emergency department for any worsening symptoms. The patient's blood cultures return positive he will be called and asked to return to the emergency department. Lower suspicion for urinary pathology given clean urine on today's evaluation. Discharge Plan Departure Patient Disposition: Home Clinical Impression: Pneumonia Instructions: DI for Fever (Symptom) -- Adult Activity Restrictions/Additional Instructions: You were seen in the emergency department today and found to have a pneumonia, fortunately did not require oxygen in the rest of your labs looked fairly well-appearing aside from some elevated inflammatory markers and white blood cell count. We discussed the pros and cons of being admitted to the hospital and that at this time he did not meet any objective criteria for admission. We will start you on antibiotics that may help with your pneumonia however if you have worsening fevers, chills inability to stay hydrated, significant shortness of breath chest pain or other concerning features please return to the emergency department as you may need to be re-evaluated. Please call your primary care doctor for appointment in the next 3-4 days for re-evaluation repeat chest x-ray to check for resolution. Prescriptions: New amoxicillin-pot clavulanate 875-125 mg tablet 1 tab PO BID Qty: 14 0RF azithromycin 250 mg tablet 250 mg PO DAILY 4 Days Qty: 4 0RF No Action [FISH OIL] Q DAY Qty: 0 [GLUCOSAMINE/CHOND] PO Q DAY Qty: 0 atorvastatin 10 mg tablet 1 tab PO DAILY lisinopril-hydrochlorothiazide 20-12.5 mg tablet 1 tab PO DAILY Referrals: Anny Navarro MD [Primary Care Provider] - Stand Alone Forms: Patient Portal/API/Survey
[2024-10-22] MEDS: AZITHROMYCIN 250 MG TABLET 500 MG PO (22:45)
[2024-10-22] MEDS: AMOXICILLIN/CLAV 875/125 MG 1 TAB PO (22:45)
--- NOTE | 2024-10-22 23:59 | PC.NURSE ---
[employer] note: Patient ambulated well around the department with pulse oximeter. Patient was able to have a conversation, with heart rate in the 110-117 range, oxygen level between 94%-97% on room air while walking. Patient back in bed and hooked up to telemetry. CHAYO Gilmore and Dr. vargas.
[2024-10-23] VITALS: BP 131/65; PULSE 93; O2SAT 93
[2024-10-23 00:30] VITALS: BP 125/67; PULSE 89; RESP 22; O2SAT 95
[2024-10-23 01:00] VITALS: TEMP 36.7
== END 2024-10-23 01:02 | disposition home or self-care (01) ==
PROVIDERS: Emergency Provider Emergency Medicine; PCP Internal Medicine
DX: J18.9 Pneumonia, unspecified organism (principal); R30.0 Dysuria
CPT/HCPCS: 36415; 51798; 71045; 80053; 81003; 81015; 83605; 83690; 84145; 85025; 85610; 85730; 87040; 93005; 96361; 96374; 99284

== ENCOUNTER → 2024-12-10 09:37 | Outpatient (CLI) | payer MEDICARE, OTHER, SELFPAY ==
--- NOTE | 2024-12-10 09:41 | DI.RAD.S_ITS ---
PROCEDURE: XR CHEST 2V INDICATIONS: PNEUMONIA TECHNIQUE: 2 views of the chest were acquired. COMPARISON: [facility], [place], PET PSMA PYLARIFY, 12/03/2024, 15:31. [facility], , XR CHEST 1V, 10/22/2024, 20:35. FINDINGS: Surgical changes and devices: None. Lungs and pleura: Lungs are clear. No pleural effusions or pneumothorax. Mediastinum: Mediastinal contours are normal. Heart size is normal. Bones and chest wall: No suspicious bony abnormalities. Soft tissues appear unremarkable. IMPRESSION: No acute cardiopulmonary abnormality is seen. Dictated by: Tricia Castro M.D. on 12/10/2024 at 15:08 Approved by: Tricia Castro M.D. on 12/10/2024 at 15:10
== END ==
PROVIDERS: PCP Internal Medicine; Referring Provider Internal Medicine; Visit Provider Family Medicine
DX: J18.9 Pneumonia, unspecified organism (principal)
CPT/HCPCS: 71046